=== PATIENT | female | born 1940 | race African-American/Black ===

== ENCOUNTER 2017-02-27 11:45 | Observation (INO) | payer MEDICARE ==
[2017-02-27] MEDS ORDERED: ACTIVATED CHARCOAL 25 GM BOTTLE PO ONE (12:07)
--- NOTE | 2017-02-27 12:08 | ER Document Report ---
ED Medical Screen (RME) - General Chief Complaint: Accidental Overdose Stated Complaint: OVERDOSE Time Seen by Provider: 02/27/17 12:05 Mode of Arrival: Ambulatory Information source: Patient Notes: 76 yr old female presents 1 hour after taking 8 amlodipine by accident. Poison control recommends charcoal. Pt admits ot feeling woozy I have greeted and performed a rapid initial assessment of this patient. A comprehensive ED assessment and evaluation of the patient, analysis of test results and completion of the medical decision making process will be conducted by additional ED providers. PHYSICAL EXAMINATION: GENERAL: Well-appearing, well-nourished and in no acute distress. HEAD: Atraumatic, normocephalic. EYES: Pupils equal round extraocular movements intact, conjunctiva are normal. ENT: Nares patent NECK: Normal range of motion LUNGS: No respiratory distress Musculoskeletal: Normal range of motion NEUROLOGICAL: Normal speech, normal gait. PSYCH: Normal mood, normal affect. SKIN: Warm, Dry, normal turgor, no rashes or lesions noted. TRAVEL OUTSIDE OF THE [place] IN LAST 30 DAYS: No - Related Data Allergies/Adverse Reactions: No Known Allergies Allergy (Unverified 02/27/17 12:03) Home Medications: Current Home Medications Amlodipine Besylate 02/27/17 [History] Atorvastatin Calcium 02/27/17 [History] Dexamethasone 02/27/17 [History] Omeprazole 02/27/17 [History] Potassium Chloride 02/27/17 [History] Past Medical History Renal/ Medical History: Denies: Hx Peritoneal Dialysis Physical Exam - Vital signs Vitals: Temp Pulse Resp BP Pulse Ox 98.8 F 108 H 16 173/66 H 98 02/27/17 11:53 02/27/17 11:53 02/27/17 11:53 02/27/17 11:53 02/27/17 11:53 Course - Vital Signs Vital signs: Temp Pulse Resp BP Pulse Ox 98.8 F 108 H 16 173/66 H 98 02/27/17 11:53 02/27/17 11:53 02/27/17 11:53 02/27/17 11:53 02/27/17 11:53
[2017-02-27] MEDS ORDERED: NORMAL SALINE 1000 ML 1,000 ML IV ONE (13:02)
[2017-02-27 13:05] LABS: ABSOLUTE EOSINOPHILS # (AUTO) 0.2 10^3/uL (0.0-0.6); ABSOLUTE LYMPHOCYTES (AUTO) 0.8 10^3/uL (0.5-4.7); ABSOLUTE MONOCYTES (AUTO) 0.5 10^3/uL (0.1-1.4); ABSOLUTE NEUT (AUTO) 2.2 10^3/uL (1.7-8.2); BASOPHILS % (AUTO) 0.4 % (0-2); HEMATOCRIT 34.3 % (36.0-47.0); HEMOGLOBIN 11.3 g/dL (12.0-15.5); HGB HCT DIFFERENCE -0.4; LYMPHOCYTES % (AUTO) 21.7 % (13-45); MEAN CORPUSCULAR HEMOGLOBIN 28.5 pg (27.0-33.4); MEAN CORPUSCULAR VOLUME 87 fl (80-97); RED BLOOD COUNT 3.96 10^6/uL (3.72-5.28); RED CELL DISTRIBUTION WIDTH 16.3 % (11.5-14.0); SEGMENTED NEUTROPHILS % (AUTO) 58.9 % (42-78); WHITE BLOOD COUNT 3.7 10^3/uL (4.0-10.5)
[2017-02-27 13:19] LABS: ALANINE AMINOTRANSFERASE 20 U/L (9-52); ALBUMIN 3.7 g/dL (3.5-5.0); ALKALINE PHOSPHATASE 62 U/L (38-126); ANION GAP 8 (5-19); ASPARTATE AMINO TRANSFERASE 14 U/L (14-36); BILIRUBIN,DIRECT 0.3 mg/dL (0.0-0.4); BILIRUBIN,TOTAL 0.7 mg/dL (0.2-1.3); BLOOD UREA NITROGEN 8 mg/dL (7-20); CALCIUM 9.2 mg/dL (8.4-10.2); CARBON DIOXIDE 29 mmol/L (22-30); CHLORIDE 103 mmol/L (98-107); CREATININE RESULT 0.56 mg/dL (0.52-1.25); GLUCOSE 81 mg/dL (75-110); MAGNESIUM 1.7 mg/dL (1.6-2.3); POTASSIUM 3.7 mmol/L (3.6-5.0); SODIUM 140.4 mmol/L (137-145); TOTAL PROTEIN 7.2 g/dL (6.3-8.2)
[2017-02-27] MEDS ORDERED: ONDANSETRON 4 MG TAB.RAPDIS PO ONE (13:28)
--- NOTE | 2017-02-27 13:49 | ER Document Report ---
ED General - General Chief Complaint: Accidental Overdose Stated Complaint: OVERDOSE Time Seen by Provider: 02/27/17 12:05 Mode of Arrival: Ambulatory TRAVEL OUTSIDE OF THE [place] IN LAST 30 DAYS: No - HPI Patient complains to provider of: Amlodipine overdose Notes: Patient has a history of multiple myeloma states that she is on chemotherapy was supposed to take 8 tablets a day had a tablet and swallowed in the look of the bile that she obtained a tablets from which was her amlodipine. Patient takes 2.5 mg tablets of amlodipine. Patient states she took these approximately 30 minutes prior to arrival here to the ER was immediately given charcoal is that she called poison control at home. Patient otherwise in triage states she felt little woozy upon my evaluation patient stating that she now feels fine. Denies any fevers chills nausea vomiting diarrhea. Denies any taking any extra medication of any of her other medications patient is unaware of the name of the chemotherapy that she was supposed to take for multiple myeloma - Related Data Allergies/Adverse Reactions: No Known Allergies Allergy (Unverified 02/27/17 12:03) Past Medical History - General Information source: Patient - Social History Smoking Status: Unknown if Ever Smoked Family History: Reviewed & Not Pertinent Patient has suicidal ideation: No Patient has homicidal ideation: No - Past Medical History Cardiac Medical History: Reports: Hx Hypertension Renal/ Medical History: Denies: Hx Peritoneal Dialysis Review of Systems - Review of Systems Constitutional: Other - Accidental overdose EENT: No symptoms reported Cardiovascular: No symptoms reported Respiratory: No symptoms reported Gastrointestinal: No symptoms reported Genitourinary: No symptoms reported Female Genitourinary: No symptoms reported Musculoskeletal: No symptoms reported Skin: No symptoms reported Hematologic/Lymphatic: No symptoms reported Neurological/Psychological: No symptoms reported Physical Exam - Vital signs Vitals: Temp Pulse Resp BP Pulse Ox 98.8 F 108 H 16 173/66 H 98 02/27/17 11:53 02/27/17 11:53 02/27/17 11:53 02/27/17 11:53 02/27/17 11:53 Interpretation: Normal - General General appearance: Appears well, Alert - HEENT Head: Normocephalic, Atraumatic Eyes: Normal Pupils: PERRL - Respiratory Respiratory status: No respiratory distress Chest status: Nontender Breath sounds: Normal Chest palpation: Normal - Cardiovascular Rhythm: Regular Heart sounds: Normal auscultation Murmur: No - Abdominal Inspection: Normal Distension: No distension Bowel sounds: Normal Tenderness: Nontender Organomegaly: No organomegaly - Back Back: Normal, Nontender - Extremities General upper extremity: Normal inspection, Nontender, Normal color, Normal ROM , Normal temperature General lower extremity: Normal inspection, Nontender, Normal color, Normal ROM , Normal temperature, Normal weight bearing. No: David's sign - Neurological Neuro grossly intact: Yes Cognition: Normal Orientation: AAOx4 Amira Coma Scale Eye Opening: Spontaneous Amira Coma Scale Verbal: Oriented Amira Coma Scale Motor: Obeys Commands Amira Coma Scale Total: 15 Speech: Normal Motor strength normal: LUE, RUE, LLE, RLE Sensory: Normal - Psychological Associated symptoms: Normal affect, Normal mood - Skin Skin Temperature: Warm Skin Moisture: Dry Skin Color: Normal Course - Re-evaluation Re-evalutation: 02/27/17 15:23 Patient's lab work does not reveal any significant pathology. Patient vital signs have been stable. EKG does not show any signs of AV block or QRS widening at this time. Patient will be monitored in the ER did discuss the patient's case with poison control recommended 24 hour observation. Discussed with the hospitalist staff will admit the patient to the telemetry area. IV fluids have been started at maintenance rate. Otherwise patient has no complaints stable for admission - Vital Signs Vital signs: Temp Pulse Resp BP Pulse Ox 98.8 F 108 H 15 146/64 H 100 02/27/17 11:53 02/27/17 11:53 02/27/17 14:01 02/27/17 14:00 02/27/17 14:01 - Laboratory Result Diagrams: 02/27/17 12:44 02/27/17 12:44 Laboratory results interpreted by me: 02/27/17 12:44 WBC 3.7 L Hgb 11.3 L Hct 34.3 L RDW 16.3 H Monocytes % 14.0 H Critical Care Note - Critical Care Note Total time excluding time spent on procedures (mins): 40 Comments: Multiple evaluations for calcium channel leadnra overdose Discharge - Discharge Clinical Impression: Accidental overdose of amlodipine Admitting Provider: Hospitalist - [facility] Admitted: Telemetry
[2017-02-27] MEDS ORDERED: NORMAL SALINE 1000 ML 1,000 ML IV PRN (14:06)
[2017-02-27] MEDS ORDERED: ACETAMINOPHEN 325 MG TABLET PO PRN (14:06)
[2017-02-27] MEDS ORDERED: MAGNESIUM HYDROXIDE SUSP 30 ML UDCUP PO PRN (14:06)
--- NOTE | 2017-02-27 14:21 | PDOC H&P ---
History of Present Illness Admission Date/PCP: 02/27/17 14:04 CAEDN LOCO MD Patient complains of: I TOOK THE WRONG MEDICINE History of Present Illness: CORONA TORRES is a 76 year old female presents from home where she resides with her after realizing she had taken the wrong pills thinking she was taking her 8 tabs of decadron she instead downed 8 norvasc of 2.5mg each (total 20mg). She's never done anything like this before and exclaims simply oversight on her part. Her PCP had taken her off the norvasc a month ago but she couldn't bring herself to throw them away, instead storing in the cabinet right next to the dexamethasone she takes for multiple myeloma. she denies chest pain, palpitations, suicide ideations, depression, lethargy, dizziness, numbness or tingling. She has remained hemodynamically stable in the ED, poison control recommended a dose of activated charcoal which she continues to consume, and overnight monitoring for adverse effects. she has the wisdom not to take her usual toprol afterwards. Past Medical History Cardiac Medical History: Reports: Hypertension Pulmonary Medical History: Reports: None Endocrine Medical History: Reports: None Malignancy Medical History: Reports: Other - multiple myeloma GI Medical History: Reports: None Social History Information Source: Patient Smoking Status: Never Smoker Frequency of Alcohol Use: None Hx Recreational Drug Use: No Hx Prescription Drug Abuse: No - Advance Directive Resuscitation Status: Full Code Family History Family History: Reviewed & Not Pertinent, Hypertension Parental Family History Reviewed: Yes Children Family History Reviewed: Yes Sibling(s) Family History Reviewed.: Yes Medication/Allergy Home Medications: Amlodipine Besylate 02/27/17 Atorvastatin Calcium 02/27/17 Dexamethasone 02/27/17 Omeprazole 02/27/17 Potassium Chloride 02/27/17 Allergies/Adverse Reactions: No Known Allergies Allergy (Unverified 02/27/17 12:03) Review of Systems All systems: reviewed and no additional remarkable complaints except as stated - all systems reviewed, see HPI, remaining systems negative. Physical Exam Vital Signs: Temp Pulse Resp BP Pulse Ox 98.8 F 108 H 21 H 142/61 H 99 02/27/17 11:53 02/27/17 11:53 02/27/17 13:44 02/27/17 13:44 02/27/17 13:44 General appearance: PRESENT: no acute distress, well-developed, well-nourished Head exam: PRESENT: atraumatic, normocephalic Eye exam: PRESENT: EOMI. ABSENT: conjunctival injection, scleral icterus Mouth exam: PRESENT: moist, neck supple Neck exam: PRESENT: full ROM. ABSENT: carotid bruit Respiratory exam: PRESENT: clear to auscultation abdelrahman. ABSENT: accessory muscle use Cardiovascular exam: PRESENT: RRR. ABSENT: systolic murmur Pulses: PRESENT: normal radial pulses, normal dorsalis pedis pul Vascular exam: PRESENT: normal capillary refill GI/Abdominal exam: PRESENT: normal bowel sounds, soft. ABSENT: tenderness Extremities exam: ABSENT: calf tenderness, clubbing, pedal edema Musculoskeletal exam: PRESENT: ambulatory, full ROM Neurological exam: PRESENT: alert, awake, oriented to person, oriented to place , oriented to time, oriented to situation Psychiatric exam: PRESENT: appropriate affect, normal mood Skin exam: PRESENT: dry. ABSENT: warm Assessment & Plan - Diagnosis (1) Accidental drug ingestion Qualifiers: Encounter type: initial encounter Qualified Code(s): T50.901A - Poisoning by unspecified drugs, medicaments and biological substances, accidental (unintentional), initial encounter Is this a current diagnosis for this admission?: YesPlan: admit to telemetry for overnight monitoring of hemodynamics; continue IVFs and bolus as needed to overcome any hypotension that may result (2) HTN (hypertension) Qualifiers: Hypertension type: essential hypertension Qualified Code(s): I10 - Essential (primary) hypertension Is this a current diagnosis for this admission?: YesPlan: stable; hold home regimen due to risk for hypotension (3) Multiple myeloma Qualifiers: Multiple myeloma remission status: not in remission Qualified Code(s ): C90.00 - Multiple myeloma not having achieved remission Is this a current diagnosis for this admission?: YesPlan: stable; currently undergoing treatment in [place] by her oncologist. - Time Time Spent: 50 to 70 Minutes Medications reviewed and adjusted accordingly: Yes Anticipated discharge: Home Within: within 24 hours
--- NOTE | 2017-02-27 17:53 | EKG REPORT ---
SEVERITY:- ABNORMAL ECG - SINUS RHYTHM PROBABLE LEFT ATRIAL ABNORMALITY LEFT VENTRICULAR HYPERTROPHY : Confirmed by: Nneka Ye 27-Feb-2017 17:52:53
[2017-02-28 07:53] VITALS: BP 131/53
--- NOTE | 2017-02-28 11:02 | PDOC DISCHARGE SUMMARY ---
General - Admit/Disc Date/PCP Admission Date/Primary Care Provider: 02/27/17 14:06 CADEN LOCO MD Discharge Date: 02/28/17 - Discharge Diagnosis (1) Accidental drug ingestion Is this a current diagnosis for this admission?: Yes (2) HTN (hypertension) Is this a current diagnosis for this admission?: Yes (3) Multiple myeloma Is this a current diagnosis for this admission?: Yes - Additional Information Resuscitation Status: Full Code Discharge Diet: Cardiac Discharge Activity: Activity As Tolerated Home Medications: Aspirin [Ecotrin 81 mg EC Tablet] 162 mg PO DAILY 02/27/17 Atorvastatin Calcium [Lipitor 10 mg Tablet] 10 mg PO QHS 02/27/17 Dexamethasone 32 mg PO MO@1000 02/27/17 Lenalidomide [Revlimid] 15 mg PO DAILY 02/27/17 Metoprolol Succinate [Toprol XL 100 mg Tablet] 50 mg PO DAILY 02/27/17 Potassium Chloride [Klor-Con 10] 10 meq PO Q12 02/27/17 Sennosides [Senna] 8.6 mg PO DAILY 02/27/17 History of Present Illness Patient complains of: i took the wrong medicine History of Present Illness: CORONA TORRES is a 76 year old female presents from home where she resides with her after realizing she had taken the wrong pills thinking she was taking her 8 tabs of decadron she instead downed 8 norvasc of 2.5mg each (total 20mg). She's never done anything like this before and exclaims simply oversight on her part. Her PCP had taken her off the norvasc a month ago but she couldn't bring herself to throw them away, instead storing in the cabinet right next to the dexamethasone she takes for multiple myeloma. she denies chest pain, palpitations, suicide ideations, depression, lethargy, dizziness, numbness or tingling. She has remained hemodynamically stable in the ED, poison control recommended a dose of activated charcoal which she continues to consume, and overnight monitoring for adverse effects. she has the wisdom not to take her usual toprol afterwards. Hospital Course Hospital Course: she was admitted and monitored overnight without evidence for hypotension or other adverse effects of the medication. she is ready and stable for d/c home at this time. she was instructed to resume her toprol upon arrival home but discard the amlodipine at local pharmacy. she expresses no concerns to me about going home at this time. Physical Exam Vital Signs: Temp Pulse Resp BP Pulse Ox 98.6 F 83 17 131/53 H 100 02/28/17 07:50 02/28/17 07:50 02/28/17 07:50 02/28/17 07:50 02/28/17 07:50 Intake & Output 02/27/17 02/28/17 03/01/17 06:59 06:59 06:59 Intake Total 835 Balance 835 Weight 46.2 kg General appearance: PRESENT: no acute distress, well-developed, well-nourished Head exam: PRESENT: atraumatic, normocephalic Eye exam: PRESENT: EOMI. ABSENT: scleral icterus Respiratory exam: PRESENT: clear to auscultation abdelrahman. ABSENT: accessory muscle use Cardiovascular exam: PRESENT: RRR. ABSENT: systolic murmur GI/Abdominal exam: PRESENT: normal bowel sounds, soft. ABSENT: tenderness Musculoskeletal exam: PRESENT: ambulatory, full ROM Qualifiers PATEINT BEING DISCHARGED WITH ANY OF THE FOLLOWING DIAGNOSIS?: No VTE patient discharged on overlapping Therapy?: No Reason(s) for not prescribing Overlap Therapy:: Not indicated Plan Discharge Plan: home with f/u prn with PCP Time Spent: Less than 30 Minutes
== END 2017-02-28 08:33 | disposition home or self-care (01) ==
LOC: ER 11:45 → UNDOADMIN 14:04 → EH 14:04 → 5 14:06 → INTOOBSV 14:06 → EH 15:03 → 5 15:03
PROVIDERS: ADMIT Internal Medicine; ATTEND Internal Medicine
DX: I10 Essential (primary) hypertension (principal); C90.00 Multiple myeloma not having achieved remission; Z79.899 Other long term (current) drug therapy; Z79.82 Long term (current) use of aspirin; Z79.52 Long term (current) use of systemic steroids; Z82.49 Family history of ischemic heart disease and other diseases of the circulatory system
CPT/HCPCS: 93005; 99291; 96360; 36415; 83735; 85025; 80053; 93010; G0378 ×3; J7030; J3490

== ENCOUNTER 2017-09-14 15:58 | Inpatient (IN) | payer MEDICARE ==
--- NOTE | 2017-09-14 16:18 | ER Document Report ---
ED Medical Screen (RME) - General Chief Complaint: Abdominal Pain Stated Complaint: STOMACH PAIN Time Seen by Provider: 09/14/17 16:13 Mode of Arrival: Wheelchair Information source: Patient Notes: 77-year-old female presents with complaints of left lower quadrant abdominal pain a few day duration. Patient notes she has had decreased appetite. Family denies any history of diverticulosis or colitis, pt still has appendix and gallbladder I have greeted and performed a rapid initial assessment of this patient. A comprehensive ED assessment and evaluation of the patient, analysis of test results and completion of the medical decision making process will be conducted by additional ED providers. PHYSICAL EXAMINATION: GENERAL: febrile but Well-appearing, well-nourished and in no acute distress. HEAD: Atraumatic, normocephalic. EYES: Pupils equal round extraocular movements intact, conjunctiva are normal. ENT: Nares patent NECK: Normal range of motion LUNGS: No respiratory distress Abdomen: Tender left lower quadrant Musculoskeletal: Normal range of motion NEUROLOGICAL: Normal speech, normal gait. PSYCH: Normal mood, normal affect. SKIN: Warm, Dry, normal turgor, no rashes or lesions noted. TRAVEL OUTSIDE OF THE [place] IN LAST 30 DAYS: No - Related Data Allergies/Adverse Reactions: No Known Allergies Allergy (Verified 09/14/17 16:01) Past Medical History - Past Medical History Cardiac Medical History: Reports: Hx Hypertension Renal/ Medical History: Denies: Hx Peritoneal Dialysis Physical Exam - Vital signs Vitals: Temp Pulse Resp BP Pulse Ox 101.1 F H 122 H 20 135/57 H 97 09/14/17 16:05 09/14/17 16:05 09/14/17 16:05 09/14/17 16:05 09/14/17 16:05 Course - Vital Signs Vital signs: Temp Pulse Resp BP Pulse Ox 101.1 F H 122 H 20 135/57 H 97 09/14/17 16:05 09/14/17 16:05 09/14/17 16:05 09/14/17 16:05 09/14/17 16:05
[2017-09-14] MEDS ORDERED: ACETAMINOPHEN 325 MG TABLET PO ONE (16:19)
[2017-09-14] MEDS ORDERED: NORMAL SALINE 1000 ML 1,000 ML IV ONE (16:19)
--- NOTE | 2017-09-14 16:55 | RADIOLOGY REPORT (SQ) ---
EXAM DESCRIPTION: CHEST PA/LAT COMPLETED DATE/TIME: 09/14/2017 4:43 pm REASON FOR STUDY: fever COMPARISON: None. EXAM PARAMETERS: NUMBER OF VIEWS: two views TECHNIQUE: Digital Frontal and Lateral radiographic views of the chest acquired. RADIATION DOSE: NA LIMITATIONS: none FINDINGS: LUNGS AND PLEURA: COPD. Minimal left basilar atelectasis or scarring. No other opacities , masses or pneumothorax. No pleural effusion. MEDIASTINUM AND HILAR STRUCTURES: No masses or contour abnormalities. HEART AND VASCULAR STRUCTURES: Heart normal size. No evidence for failure. BONES: No acute findings. Old healed fracture of the proximal right humerus. HARDWARE: Multiple surgical clips along the right chest wall. OTHER: Partial eventration of the right hemidiaphragm. IMPRESSION: COPD with minimal left basilar atelectasis or scarring. TECHNICAL DOCUMENTATION: JOB ID: [id number] [employer]- All Rights Reserved
[2017-09-14 17:39] LABS: ABSOLUTE LYMPHOCYTES (AUTO) 0.6 10^3/uL (0.5-4.7); ABSOLUTE MONOCYTES (AUTO) 1.1 10^3/uL (0.1-1.4); ABSOLUTE NEUT (AUTO) 5.8 10^3/uL (1.7-8.2); BASOPHILS % (AUTO) 0.2 % (0-2); EOSINOPHILS % (AUTO) 0.1 % (0-6); HEMATOCRIT 36.4 % (36.0-47.0); HEMOGLOBIN 12.2 g/dL (12.0-15.5); LYMPHOCYTES % (AUTO) 8.6 % (13-45); MEAN CORPUSCULAR HEMOGLOBIN 28.3 pg (27.0-33.4); MEAN CORPUSCULAR HGB CONC 33.6 g/dL (32.0-36.0); MEAN CORPUSCULAR VOLUME 84 fl (80-97); MONOCYTES % (AUTO) 14.4 % (3-13); PLATELET COUNT 345 10^3/uL (150-450); RED BLOOD COUNT 4.33 10^6/uL (3.72-5.28); RED CELL DISTRIBUTION WIDTH 16.1 % (11.5-14.0); SEGMENTED NEUTROPHILS % (AUTO) 76.7 % (42-78); TOTAL CELLS COUNTED % (AUTO) 100 %; WHITE BLOOD COUNT 7.5 10^3/uL (4.0-10.5)
[2017-09-14 17:43] LABS: VENOUS BLOOD HCO3 26.8 mmol/L (20-32); VENOUS BLOOD PCO2 38.1 mmHg (35-63); VENOUS BLOOD PH 7.47 (7.30-7.42)
[2017-09-14 17:52] LABS: INTERNATIONAL RATION (INR) 0.97; PROTHROMBIN TIME 13.6 SEC (11.4-15.4)
[2017-09-14 17:56] LABS: ALANINE AMINOTRANSFERASE 20 U/L (9-52); ALBUMIN 3.8 g/dL (3.5-5.0); ALKALINE PHOSPHATASE 52 U/L (38-126); ANION GAP 11 (5-19); ASPARTATE AMINO TRANSFERASE 11 U/L (14-36); BILIRUBIN,DIRECT 0.4 mg/dL (0.0-0.4); BILIRUBIN,TOTAL 1.1 mg/dL (0.2-1.3); BLOOD UREA NITROGEN 8 mg/dL (7-20); CALCIUM 9.6 mg/dL (8.4-10.2); CARBON DIOXIDE 27 mmol/L (22-30); CHLORIDE 97 mmol/L (98-107); GLUCOSE 135 mg/dL (75-110); POTASSIUM 3.1 mmol/L (3.6-5.0); SODIUM 134.8 mmol/L (137-145); TOTAL PROTEIN 6.8 g/dL (6.3-8.2)
--- NOTE | 2017-09-14 18:44 | ER Document Report ---
ED GI/ - General Chief Complaint: Abdominal Pain Stated Complaint: STOMACH PAIN Time Seen by Provider: 09/14/17 16:13 Mode of Arrival: Wheelchair Notes: The patient is a 77-year-old female, PMHx multiple myeloma receiving monthly oral chemo, HTN, COPD, no prior abdominal surgeries, presents with 1 day of left lower abdominal pain and fevers. She was having watery diarrhea yesterday. She denies nausea, vomiting, urinary symptoms, blood in stool, rash , chest pain or shortness of breath. TRAVEL OUTSIDE OF THE [place] IN LAST 30 DAYS: No - Related Data Allergies/Adverse Reactions: No Known Allergies Allergy (Verified 09/14/17 16:01) Past Medical History - General Information source: Patient - Social History Smoking Status: Never Smoker Family History: Reviewed & Not Pertinent Patient has suicidal ideation: No Patient has homicidal ideation: No - Past Medical History Cardiac Medical History: Reports: Hx Hypercholesterolemia, Hx Hypertension Renal/ Medical History: Denies: Hx Peritoneal Dialysis Past Surgical History: Reports: Hx Breast Surgery - R lumpectomy, Hx Orthopedic Surgery - pin in L leg Review of Systems - Review of Systems Notes: REVIEW OF SYSTEMS: CONSTITUTIONAL: +fevers, -chills EENT: -eye pain, -difficulty swallowing, -nasal congestion CARDIOVASCULAR: -chest pain, -syncope. RESPIRATORY: -cough, -SOB GASTROINTESTINAL: +LLQ abdominal pain, -nausea, -vomiting, -diarrhea GENITOURINARY: -dysuria, -hematuria MUSCULOSKELETAL: -back pain, -neck pain SKIN: -rash or skin lesions. HEMATOLOGIC: -easy bruising or bleeding. LYMPHATIC: -swollen, enlarged glands. NEUROLOGICAL: -altered mental status or loss of consciousness, -headache, - neurologic symptoms PSYCHIATRIC: -anxiety, -depression. ALL OTHER SYSTEMS REVIEWED AND NEGATIVE. Physical Exam - Vital signs Vitals: Temp Pulse Resp BP Pulse Ox 101.1 F H 122 H 20 135/57 H 97 09/14/17 16:05 09/14/17 16:05 09/14/17 16:05 09/14/17 16:05 09/14/17 16:05 - Notes Notes: PHYSICAL EXAMINATION: GENERAL: Well-appearing, well-nourished and in no acute distress. HEAD: Atraumatic, normocephalic. EYES: Pupils equal round and reactive to light, extraocular movements intact, sclera anicteric, conjunctiva are normal. ENT: nares patent, oropharynx clear without exudates. Moist mucous membranes. NECK: Normal range of motion, supple without lymphadenopathy LUNGS: Breath sounds clear to auscultation bilaterally and equal. No wheezes rales or rhonchi. HEART: Tachycardia, regular rhythm. ABDOMEN: Soft, mild LLQ tenderness, normoactive bowel sounds. No guarding, no rebound. No masses appreciated. EXTREMITIES: Normal range of motion, no pitting or edema. No cyanosis. NEUROLOGICAL: Cranial nerves grossly intact. Normal speech, normal gait. Normal sensory and motor exams. PSYCH: Normal mood, normal affect. SKIN: Warm, Dry, normal turgor, no rashes or lesions noted. Course - Re-evaluation Re-evalutation: Concern for diverticulitis and possible perforation with LLQ tenderness, tachycardia and fever. CT scan ordered. Pt refused pain medications at this time. 09/14/17 21:40 CT scan showed 4.2 cm contained perforated presumed diverticulitis at the sigmoid -descending colonic junction inflammatory changes. Spoke to Dr. Boucher (Surgicalist) and he will consult on the patient. Will begin Zosyn and IVF. Potassium also 3.1, so will replete through IV. Pt once again defers pain medicine. Her BP is remaining in 140's-150's/80's. Due to her other comorbidities, he recommends admission to hospitalist. 09/14/17 21:[address] Beltran and she will admit patient as Inpatient to telemetry. - Vital Signs Vital signs: Temp Pulse Resp BP Pulse Ox 101.1 F H 122 H 19 150/62 H 97 09/14/17 16:05 09/14/17 16:05 09/14/17 20:01 09/14/17 20:01 09/14/17 20:01 - Laboratory Result Diagrams: 09/14/17 17:24 09/14/17 17:24 Laboratory results interpreted by me: 09/14/17 09/14/17 09/14/17 17:24 17:24 17:24 RDW 16.1 H Lymphocytes % 8.6 L Monocytes % 14.4 H VBG pH 7.47 H Sodium 134.8 L Potassium 3.1 L Chloride 97 L Glucose 135 H POC Glucose AST 11 L Urine Blood 09/14/17 09/14/17 18:23 18:26 RDW Lymphocytes % Monocytes % VBG pH Sodium Potassium Chloride Glucose POC Glucose 135 H AST Urine Blood SMALL H - Diagnostic Test Radiology reviewed: Image reviewed, Reports reviewed Radiology results interpreted by me: CT A/P: 4.2 cm contained perforated presumed diverticulitis at the sigmoid - descending colonic junction inflammatory changes, there is diffuse wall thickening through this region measuring up to 1.4 cm, underlying lesion is not excluded. Surgical consultation is recommended. Discharge - Discharge Clinical Impression: Perforated diverticulum of large intestine, Hypokalemia Sepsis Qualifiers: Sepsis type: sepsis due to unspecified organism Qualified Code(s): A41.9 - Sepsis, unspecified organism Condition: Stable Disposition: ADMITTED INPATIENT Admitting Provider: Hospitalist - [facility] Admitted: Telemetry Referrals: CADEN LOCO MD [Primary Care Provider] - Follow up as needed
[2017-09-14 18:49] LABS: APPEARANCE,URINE CLEAR; BILIRUBIN,URINE NEGATIVE (NEGATIVE); COLOR,URINE YELLOW; GLUCOSE, URINE NEGATIVE (NEGATIVE); KETONES,URINE NEGATIVE (NEGATIVE); LEUKOCYTE ESTERASE,URINE NEGATIVE (NEGATIVE); NITRITE,URINE NEGATIVE (NEGATIVE); PROTEIN,URINE NEGATIVE (NEGATIVE); URINE SPECIFIC GRAVITY 1.009; UROBILINOGEN,URINE NEGATIVE mg/dL (<2.0)
--- NOTE | 2017-09-14 19:56 | EKG REPORT ---
SEVERITY:- ABNORMAL ECG - SINUS TACHYCARDIA PROBABLE LEFT ATRIAL ABNORMALITY BORDERLINE LEFT AXIS DEVIATION NONSPECIFIC T ABNORMALITIES, ANT-LAT LEADS : Confirmed by: Anderson Steinberg MD 14-Sep-2017 19:54:38
--- NOTE | 2017-09-14 21:11 | RADIOLOGY REPORT (SQ) ---
EXAM DESCRIPTION: CT ABD/PELVIS WITH IV ORAL COMPLETED DATE/TIME: 09/14/2017 8:51 pm REASON FOR STUDY: LLQ pain, fever COMPARISON: None. TECHNIQUE: CT scan of the abdomen and pelvis performed using helical scanning technique with dynamic intravenous contrast injection. No oral contrast. Images reviewed with lung, soft tissue, and bone windows. Reconstructed coronal and sagittal MPR images reviewed. Delayed images for evaluation of the urinary system also acquired. All images stored on PACS. All CT scanners at this facility use dose modulation, iterative reconstruction, and/or weight based d osing when appropriate to reduce radiation dose to as low as reasonably achievable (ALARA). [facility]: Dose Right [facility]: CareDose [facility]: Dose Right [facility]: Teradose 4D [facility]: drop.io CONTRAST TYPE AND DOSE: contrast/concentration: Isovue 370.00 mg/ml; Total Contrast Delivered: 64.0 ml; Total Saline Delivered: 65.1 ml RENAL FUNCTION: GFR > 60. RADIATION DOSE: CT Rad equipment meets quality standard of care and radiation dose reduction techniq ues were employed. CTDIvol: 6.8 - 9.7 mGy. DLP: 800 mGy-cm.. LIMITATIONS: None. FINDINGS: LOWER CHEST: No significant findings. No nodules or infiltrates. LIVER: Normal size. No masses. No dilated ducts. SPLEEN: Normal size. No focal lesions. PANCREAS: No masses. No significant calcifications. No adjacent inflammation or peripancreatic fluid collections. Pancreatic duct not dilated. GALLBLADDER: No identified stones by CT criteria. No inflammatory changes to suggest cholecystitis. ADRENAL GLANDS: No significant masses or asymmetry. RIGHT KIDNEY AND URETER: No solid masses. Parapelvic cysts. No significant calcifications. No hyd ronephrosis or hydroureter. LEFT KIDNEY AND URETER: No solid masses. Parapelvic cysts. No significant calcifications. No hydr onephrosis or hydroureter. AORTA AND VESSELS: No aneurysm. No dissection. Renal arteries, SMA, celiac without stenosis. RETROPERITONEUM: No retroperitoneal adenopathy, hemorrhage or masses. BOWEL AND PERITONEAL CAVITY: 4.2 cm contained perforated presumed diverticulitis at the sigmoid -desc ending colonic junction inflammatory changes, there is diffuse wall thickening through this region me asuring up to 1.4 cm, underlying lesion is not excluded. Moderate mesenteric free fluid and inflamma tory changes are present extending into the left upper retroperitoneum. APPENDIX: Normal. PELVIS: Small amount of free fluid. Normal bladder. ABDOMINAL WALL: No masses. No hernias. BONES: No significant or acute findings. OTHER: No other significant finding. IMPRESSION: 4.2 cm contained perforated presumed diverticulitis at the sigmoid -descending colonic j unction inflammatory changes, there is diffuse wall thickening through this region measuring up to 1. 4 cm, underlying lesion is not excluded. Surgical consultation is recommended. TECHNICAL DOCUMENTATION: JOB ID: [id number] Quality ID # [id number]: Final reports with documentation of one or more dose reduction techniques (e.g., Au tomated exposure control, adjustment of the mA and/or kV according to patient size, use of iterative reconstruction technique) 2010 [employer]- All Rights Reserved
[2017-09-14] MEDS ORDERED: PIPERACILLIN/TAZOBACTAM 3.375 GM VIAL IV ONE (21:37)
[2017-09-14] MEDS: POTASSI CL 20 MEQ/50 ML RIDER 20 MEQ/50 ML RTUPB IV SCH ×2 (22:15→23:38)
[2017-09-14] MEDS ORDERED: PROMETHAZINE HCL INJ 25 MG/1 ML VIAL IV PRN (22:17)
[2017-09-14] MEDS ORDERED: ACETAMINOPHEN 650 MG SUPP.RECT PR PRN (22:17)
[2017-09-14] MEDS ORDERED: NORMAL SALINE 1000 ML 1,000 ML IV SCH (22:30)
--- NOTE | 2017-09-14 23:16 | PDOC CONSULTATION ---
Consultation Consult Date: 09/14/17 Consult reason:: left side abdominal pain History of Present Illness Admission Date/PCP: 09/14/17 22:12 CADEN LOCO MD History of Present Illness: This is a 77 y/o female with a 2 day hx of left sided abdominal pain, last bowel movement 2 days ago and reports passing flatus today. She denies hematochetia, vomiting, nausea; her most recent colonoscopy was several years ago and it was negative. A CT scab of the A/P was done today and a localized perforated diverticulitis has been diagnosed. Past Medical History Cardiac Medical History: Reports: Hyperlipidema, Hypertension Hematology: Reports: Anemia Past Surgical History Past Surgical History: Reports: Orthopedic Surgery - pin in L leg Social History Smoking Status: Never Smoker Frequency of Alcohol Use: None Hx Recreational Drug Use: No Drugs: None Hx Prescription Drug Abuse: No Family History Family History: Reviewed & Not Pertinent Parental Family History Reviewed: Yes Children Family History Reviewed: Yes Sibling(s) Family History Reviewed.: Yes Medication/Allergy Home Medications: Aspirin [Ecotrin 81 mg EC Tablet] 162 mg PO DAILY 02/27/17 Atorvastatin Calcium [Lipitor 10 mg Tablet] 10 mg PO QHS 02/27/17 Dexamethasone 32 mg PO MO@1000 02/27/17 Lenalidomide [Revlimid] 15 mg PO DAILY 02/27/17 Metoprolol Succinate [Toprol XL 100 mg Tablet] 50 mg PO DAILY 02/27/17 Potassium Chloride [Klor-Con 10] 10 meq PO Q12 02/27/17 Sennosides [Senna] 8.6 mg PO DAILY 02/27/17 Allergies/Adverse Reactions: No Known Allergies Allergy (Verified 09/14/17 16:01) Physical Exam Vital Signs: Temp Pulse Resp BP Pulse Ox 101.1 F H 122 H 19 150/62 H 97 09/14/17 16:05 09/14/17 16:05 09/14/17 20:01 09/14/17 20:01 09/14/17 20:01 General appearance: PRESENT: no acute distress Head exam: PRESENT: atraumatic Neck exam: PRESENT: full ROM Respiratory exam: PRESENT: clear to auscultation abdelrahman Cardiovascular exam: PRESENT: RRR GI/Abdominal exam: PRESENT: distended, soft, tenderness - left lateral quadrant Neurological exam: PRESENT: alert, awake, oriented to person, oriented to place , oriented to time, oriented to situation, CN II-XII grossly intact. ABSENT: motor sensory deficit Results Impressions: Abdomen/Pelvis CT 09/14/17 00:00 IMPRESSION: 4.2 cm contained perforated presumed diverticulitis at the sigmoid -descending colonic junction inflammatory changes, there is diffuse wall thickening through this region measuring up to 1.4 cm, underlying lesion is not excluded. Surgical consultation is recommended. Chest X-Ray 09/14/17 16:19 IMPRESSION: COPD with minimal left basilar atelectasis or scarring. Assessment & Plan - Diagnosis (2) Perforated diverticulum of large intestine Is this a current diagnosis for this admission?: Yes - Plan Summary Plan Summary: A/ Acute, localized perforated sigmoid diverticulitis WBC normal Physical Exam shows mild pain on the left lateral quadrant Multiple myeloma P/ Agree with admission IV Hydration IV Abx (Zosyn) Strict NPO Diet can be advanced as the patient symptoms ans physical exam improve
[2017-09-15] MEDS ORDERED: PIPERACILLIN/TAZOBACTAM 3.375 GM VIAL IV SCH (00:45)
[2017-09-15] MEDS ORDERED: HYDRALAZINE HCL INJ/PF 20 MG/1 ML SDV IV PRN (00:49)
--- NOTE | 2017-09-15 00:50 | PDOC H&P ---
History of Present Illness Admission Date/PCP: 09/14/17 22:12 CADEN LOCO MD Patient complains of: Left-sided abdominal pain for the last couple of days. History of Present Illness: CORONA TORRES is a 77 year old female with history of recurrent multiple myeloma (started on chemotherapy on 09/11/2017), breast cancer (post right lumpectomy, chemoradiation) was admitted with above-mentioned complaints. It was very difficult to get an accurate history from the patient so most of the information was obtained from her at bedside. According to the patient, she started having left-sided abdominal pain 2 days ago. The pain was intermittent and severe. She felt nauseous around 1 AM yesterday and vomited once. The vomitus was of food consistency, nonbloody. She denied any fever or chills or any diarrhea. She has chronic constipation intermittently. She also denied any urinary symptoms. In the ED, her temperature was 101.1, heart rate 122, respiratory rate 20, blood pressure 135/57 with oxygen saturation of 97% on room air. Her WBC was 10.5 and her hemoglobin was 12.2. Lactic acid was 1.4. UA and CXR were both negative. An abdominal CAT scan was done which showed 4.2 cm contained perforated diverticulitis at the sigmoid/descending colon junction with diffuse wall thickening in the region. She received 3.375 mg IV Zosyn 1. Past Medical History Cardiac Medical History: Reports: Hyperlipidema, Hypertension Malignancy Medical History: Reports: Breast Cancer - Post right lumpectomy with a chemoradiation., Other - Myeloma, recurrent. She was restarted on chemo on . Hematology: Reports: Anemia Past Surgical History Past Surgical History: Reports: Hysterectomy, Orthopedic Surgery - pin in L leg , Other - Right lumpectomy. Social History Smoking Status: Never Smoker Cigarettes Packs Per Day: 0 - She used to smoke less than a pack a day for about 10 years. She quit the more than 30 years ago. Frequency of Alcohol Use: None Hx Recreational Drug Use: No Drugs: None Hx Prescription Drug Abuse: No Family History Parental Family History Reviewed: Yes - No history of heart disease or diabetes. Children Family History Reviewed: No Sibling(s) Family History Reviewed.: Yes Medication/Allergy Home Medications: Aspirin [Ecotrin 81 mg EC Tablet] 162 mg PO DAILY 02/27/17 Atorvastatin Calcium [Lipitor 10 mg Tablet] 10 mg PO QHS 02/27/17 Dexamethasone 32 mg PO MO@1000 02/27/17 Lenalidomide [Revlimid] 15 mg PO DAILY 02/27/17 Metoprolol Succinate [Toprol XL 100 mg Tablet] 50 mg PO DAILY 02/27/17 Potassium Chloride [Klor-Con 10] 10 meq PO Q12 02/27/17 Sennosides [Senna] 8.6 mg PO DAILY 02/27/17 Allergies/Adverse Reactions: No Known Allergies Allergy (Verified 09/14/17 16:01) Review of Systems Constitutional: ABSENT: chills, fever(s), night sweats Eyes: ABSENT: visual disturbances Ears: ABSENT: hearing changes Nose, Mouth, and Throat: ABSENT: headache(s), sore throat Cardiovascular: PRESENT: as per HPI. ABSENT: chest pain, edema, palpitations Respiratory: ABSENT: cough, dyspnea Gastrointestinal: PRESENT: as per HPI Genitourinary: PRESENT: as per HPI Musculoskeletal: ABSENT: back pain, muscle weakness Integumentary: ABSENT: diaphoresis, erythema, rash Neurological: ABSENT: abnormal movements, abnormal speech Physical Exam Vital Signs: Temp Pulse Resp BP Pulse Ox 101.1 F H 122 H 19 150/62 H 97 09/14/17 16:05 09/14/17 16:05 09/14/17 20:01 09/14/17 20:01 09/14/17 20:01 General appearance: PRESENT: no acute distress Head exam: PRESENT: atraumatic, normocephalic Eye exam: PRESENT: conjunctiva pink, PERRLA. ABSENT: scleral icterus Mouth exam: PRESENT: moist, tongue midline Neck exam: ABSENT: JVD Respiratory exam: PRESENT: clear to auscultation abdelrahman. ABSENT: rales, rhonchi, wheezes Cardiovascular exam: PRESENT: RRR - S1 S2 normal. ABSENT: rubs Pulses: PRESENT: normal dorsalis pedis pul GI/Abdominal exam: PRESENT: normal bowel sounds, soft, tenderness - LLQ. ABSENT : distended, rebound Rectal exam: PRESENT: deferred Extremities exam: PRESENT: full ROM. ABSENT: pedal edema Neurological exam: PRESENT: alert, awake, oriented to situation Psychiatric exam: PRESENT: appropriate affect, normal mood Skin exam: PRESENT: dry, intact, warm. ABSENT: rash Results Laboratory Results: CBC: WBC 7.5, hemoglobin 12.2, hematocrit 36.4, MCV 84, RDW 16.1, platelets 345. PT/INR: 30.6/0.97. VB.47/38.1/26.8 (bicarb). CMP: Sodium 134.8, potassium 3.1, chloride 97, bicarb 27, anion gap 11, BUN 8, creatinine 0.55, glucose 135, lactic acid 1.4, calcium 9.6, AST/ALT 11/20. UA: Negative. EKG Comments: 12 lead EKG: Sinus rhythm, ventricular rate 100, [place] 0, poor R-wave progression , no acute changes. Compared to previous 12-lead EKG done on 02/27/2017, sinus rhythm, ventricular rate 85, [place] 0, no acute changes. Impressions: Abdomen/Pelvis CT 09/14/17 00:00 IMPRESSION: 4.2 cm contained perforated presumed diverticulitis at the sigmoid -descending colonic junction inflammatory changes, there is diffuse wall thickening through this region measuring up to 1.4 cm, underlying lesion is not excluded. Surgical consultation is recommended. Chest X-Ray 09/14/17 16:19 IMPRESSION: COPD with minimal left basilar atelectasis or scarring. Assessment & Plan - Diagnosis (1) Perforated diverticulum of large intestine Is this a current diagnosis for this admission?: Yes Plan: (contained). Abdominal CAT scan reviewed. We will continue conservative management with IV fluids and pain medications as needed and monitor. Surgical consultation is appreciated. (2) Sepsis Qualifiers: Sepsis type: sepsis due to unspecified organism Qualified Code(s): A41.9 - Sepsis, unspecified organism Is this a current diagnosis for this admission?: Yes Plan: Given fever and tachycardia in the setting of diverticulitis. CXR and abdominal CAT scan were reviewed. Her UA was negative. We will continue Zosyn and follow-up blood cultures. (3) Acute diverticulitis of intestine Is this a current diagnosis for this admission?: Yes Plan: Left lower quadrant, management as per #2 (4) Essential hypertension Is this a current diagnosis for this admission?: Yes Plan: IV hydralazine as needed. (5) Multiple myeloma Qualifiers: Multiple myeloma remission status: not in remission Qualified Code(s): C90.00 - Multiple myeloma not having achieved remission Is this a current diagnosis for this admission?: No Plan: The patient is currently receiving chemotherapy. - Time Time Spent: Greater than 70 Minutes Anticipated discharge: Home - Inpatient Certification Based on my medical assessment, after consideration of the patient's comorbidities, presenting symptoms, or acuity I expect that the services needed warrant INPATIENT care.: Yes I certify that my determination is in accordance with my understanding of Medicare's requirements for reasonable and necessary INPATIENT services [42 CFR 412.3e].: Yes
[2017-09-15] MEDS: POTASSI CL 20 MEQ/50 ML RIDER 20 MEQ/50 ML RTUPB IV SCH ×2 (02:32→05:20)
[2017-09-15] MEDS ORDERED: POTASSI CL 20 MEQ/50 ML RIDER 20 MEQ/50 ML RTUPB IV ONE (05:11)
[2017-09-15] MEDS: HEPARIN SOD (PORCINE) 5,000 UNIT/ML 1 ML SYRINGE SUBCUT SCH ×3 (06:44→21:38)
[2017-09-15 07:00] LABS: HEMATOCRIT 32.4 % (36.0-47.0); HEMOGLOBIN 10.8 g/dL (12.0-15.5); MEAN CORPUSCULAR HEMOGLOBIN 28.2 pg (27.0-33.4); MEAN CORPUSCULAR HGB CONC 33.4 g/dL (32.0-36.0); MEAN CORPUSCULAR VOLUME 84 fl (80-97); PLATELET COUNT 277 10^3/uL (150-450); RED BLOOD COUNT 3.84 10^6/uL (3.72-5.28); RED CELL DISTRIBUTION WIDTH 16.4 % (11.5-14.0); WHITE BLOOD COUNT 7.4 10^3/uL (4.0-10.5)
[2017-09-15 07:21] LABS: ALANINE AMINOTRANSFERASE 21 U/L (9-52); ALBUMIN 2.9 g/dL (3.5-5.0); ALKALINE PHOSPHATASE 40 U/L (38-126); ANION GAP 7 (5-19); ASPARTATE AMINO TRANSFERASE 9 U/L (14-36); BILIRUBIN,DIRECT 0.3 mg/dL (0.0-0.4); BILIRUBIN,TOTAL 0.9 mg/dL (0.2-1.3); BLOOD UREA NITROGEN 6 mg/dL (7-20); CALCIUM 8.3 mg/dL (8.4-10.2); CARBON DIOXIDE 23 mmol/L (22-30); CHLORIDE 108 mmol/L (98-107); GLUCOSE 107 mg/dL (75-110); POTASSIUM 3.9 mmol/L (3.6-5.0); SODIUM 138.2 mmol/L (137-145); TOTAL PROTEIN 5.7 g/dL (6.3-8.2)
--- NOTE | 2017-09-15 08:05 | EKG REPORT ---
SEVERITY:- ABNORMAL ECG - SINUS RHYTHM PROBABLE POSTERIOR INFARCT BORDERLINE T ABNORMALITIES, INFERIOR LEADS : Confirmed by: Anderson Steinberg MD 15-Sep-2017 08:04:26
[2017-09-15] MEDS: PANTOPRAZOLE SODIUM 40 MG VIAL IV SCH (08:50)
--- NOTE | 2017-09-15 10:56 | PDOC PROGRESS REPORT ---
Subjective Progress Note for:: 09/15/17 Subjective:: Patient is a 77-year-old female who recently started chemotherapy for multiple myeloma. This was started on 09/11/2017. She presented with 2 days of abdominal pain. CT imaging has demonstrated a contained perforated diverticulum. Surgery is following. The patient has had persistent abdominal pain overnight. Reason For Visit: PERFORATED VISCOUS Physical Exam Vital Signs: Temp Pulse Resp BP Pulse Ox 99.1 F 105 H 18 169/54 H 100 09/15/17 07:17 09/15/17 07:17 09/15/17 07:17 09/15/17 07:17 09/15/17 07:17 Intake & Output 09/14/17 09/15/17 09/16/17 06:59 06:59 06:59 Intake Total 950 Balance 950 Weight 57.9 kg Additional comments: The patient appears to be her stated age. She is mentating well this morning. She does appear to be in mild distress due to pain. Her facial appearance is unremarkable. Her lungs are noted to be clear to auscultation bilaterally but somewhat diminished in the bases posteriorly. Her cardiac exam is regular without murmurs, gallops or rubs. The abdomen is extremely tender with minimal palpation in all 4 quadrants. She does not however have guarding or rebound noted. Lower extremities are warm to touch without edema. The skin is clean, dry, warm and intact. Results Laboratory Results: 09/15/17 06:32 09/15/17 06:32 09/15/17 09/15/17 06:32 06:32 WBC 7.4 RBC 3.84 Hgb 10.8 L Hct 32.4 L MCV 84 MCH 28.2 MCHC 33.4 RDW 16.4 H Plt Count 277 Sodium 138.2 Potassium 3.9 Chloride 108 H Carbon Dioxide 23 Anion Gap 7 BUN 6 L Creatinine 0.49 L Est GFR ( Amer) > 60 Est GFR (Non-Af Amer) > 60 Glucose 107 Calcium 8.3 L Total Bilirubin 0.9 AST 9 L ALT 21 Alkaline Phosphatase 40 Total Protein 5.7 L Albumin 2.9 L Impressions: Abdomen/Pelvis CT 09/14/17 00:00 IMPRESSION: 4.2 cm contained perforated presumed diverticulitis at the sigmoid -descending colonic junction inflammatory changes, there is diffuse wall thickening through this region measuring up to 1.4 cm, underlying lesion is not excluded. Surgical consultation is recommended. Chest X-Ray 09/14/17 16:19 IMPRESSION: COPD with minimal left basilar atelectasis or scarring. Assessment & Plan - Diagnosis (1) Acute diverticulitis of intestine Is this a current diagnosis for this admission?: Yes Plan: Continue n.p.o. status, Zosyn and surgery consultation. (2) Essential hypertension Is this a current diagnosis for this admission?: Yes Plan: Patient is n.p.o. Will use intravenous medications for now until we can resume oral medications. (3) Perforated diverticulum of large intestine Is this a current diagnosis for this admission?: Yes (4) Sepsis Qualifiers: Sepsis type: sepsis due to unspecified organism Qualified Code(s): A41.9 - Sepsis, unspecified organism Is this a current diagnosis for this admission?: Yes Plan: Patient presented with fever and tachycardia consistent with sepsis. (5) Multiple myeloma Qualifiers: Multiple myeloma remission status: not in remission Qualified Code(s): C90.00 - Multiple myeloma not having achieved remission Is this a current diagnosis for this admission?: Yes Plan: We will begin medications when appropriate. - Time Time Spent with patient: 25-34 minutes - Inpatient Certification Medical Necessity: Need Close Monitoring Due to Risk of Patient Decompensation, Need for Pain Control, Need for IV Antibiotics, Risk of Complication if Not Cared For in Hospital
--- NOTE | 2017-09-15 13:06 | Progress Note ---
Provider Note Provider Note: In regards to the patient's Revlimid and dexamethasone I did speak to Dr. Pat Woodruff who is covering today for Dr. Larisa Raymond. It is not recommended to start these medications at this time.
[2017-09-15] MEDS: PIPERACILLIN SODIUM/TAZOBACTAM 3.375 GM in NORMAL SALINE 100 ML IV SCH ×2 (13:24→20:07)
[2017-09-15] MEDS: POTASSI CL 20 MEQ/1/2NS 1L 20 MEQ/1,000 ML RTUINJ IV PRN (13:34)
[2017-09-15] MEDS ORDERED: FENTANYL CITRATE INJ/PF 100 MCG/2 ML AMPUL ONE (17:18)
[2017-09-15] MEDS ORDERED: MIDAZOLAM 2 MG/2 ML INJ ONE (17:25)
--- NOTE | 2017-09-15 18:48 | PROGRESS NOTE E ---
Progress Note NAME: CORONA TORRES : 1940 AGE: 77Y DATE: 09/15/2017 ROOM: 326 SUBJECTIVE: The patient was admitted to the hospital service and surgery consulting for acute abdominal pain. She was worked up and found to have evidence of contained pericolonic abscess in the sigmoid colon, Hinchey Classification I. She was started on IV antibiotic, Zosyn, has clinically improved. OBJECTIVE: VITAL SIGNS: Stable. GENERAL: The patient is in no acute distress. ABDOMEN: The abdomen is examined. No peritoneal signs, some localized right lower quadrant tenderness. There is no rigidity. DIAGNOSTIC STUDIES: Laboratory profile; hemoglobin down to 10.8, likely dilutional; white blood cell count remains within normal limits. ASSESSMENT: CLINICALLY IMPROVED, HINCHEY CLASSIFICATION I PERICOLONIC DIVERTICULAR PERFORATION WITH LOCALIZED ABSCESS. RECOMMENDATIONS: 1. Continue IV fluids, intravenous antibiotics. 2. Suggest starting sips of clear liquids. 3. Questions answered to patient's satisfaction. DICTATING PHYSICIAN: LAM HOFFMAN M.D. [id number] PHY#: [id number] ID: [id number] JOB#: [id number] ACCT: [id number] cc: >
--- NOTE | 2017-09-15 20:05 | RADIOLOGY REPORT (SQ) ---
EXAM DESCRIPTION: CT GUIDED PERCUT DRAIN W/CATH; CT NEEDLE PLACEMENT COMPLETED DATE/TIME: 09/15/2017 7:21 pm REASON FOR STUDY: abdominal abcess COMPARISON: None. TECHNIQUE: CT guided drainage of the left lower quadrant diverticular abscess performed with conscio us sedation. CT Fluoroscopy Time: 2.[address] scanners at this facility use dose modulation, iterative reconstruction, and/or weight based d osing when appropriate to reduce radiation dose to as low as reasonably achievable (ALARA). [facility]: Dose Right [facility]: CareDose [facility]: Dose Right [facility]: Teradose 4D [facility]: Tweet Category RADIATION DOSE: mGy. FINDINGS: The procedure was discussed with the patient and her , and the patient agreed to th e procedure. Prior to the procedure, a time out was performed to verify the patient's identity and pl anned procedure. IV sedation was administered and physician direction by the registered nurse using 0.5 milligrams of Versed and 100 micrograms of fentanyl. Physiologic monitoring was provided before, during, and after sedation. The total sedation time was 35 minutes. Documentation face to face time, the performing proceduralist, spent monitoring the patient: [address] scanning was performed to localize the percutaneous site for the abscess drainage appr [facility]. After sterile skin prep and local lidocaine for skin and deep tissue anesthesia, an 18 gauge needle w as used to access the left lower quadrant abscess drainage. There was prompt return of purulent mate rial, specimens were sent for Gram stain culture and sensitivity. A 0.38 guidewire was placed throug h the needle, the needle was withdrawn, the tract was dilated with an 8 Maldivian dilator, and a 10 Fren ch locking pigtail catheter was placed into the abscess cavity. Further return of purulent material. Pigtail was locked in place, secured to the patient's skin. Abscess cavity was flushed with steril e saline, the catheter was then placed to an accordion suction bag. There were no immediate complica tions. Culture is pending at the time of dictation. IMPRESSION: CT GUIDED DIVERTICULAR ABSCESS DRAINAGE PERFORMED WITHOUT IMMEDIATE COMPLICATION. FINDI NGS DISCUSSED WITH DR. HOFFMAN COMMENT: Quality ID 145: Final reports for procedures using fluoroscopy that document radiation exp osure indices, or exposure time and number of fluorographic images (if radiation exposure indices are not available) Patient medication list reviewed: Yes- Quality ID# [id number]:Eligible professional attests to documenting i n the medical record they obtained, updated, or reviewed the patient's current medications.. TECHNICAL DOCUMENTATION: JOB ID: [id number] Quality ID# 436: Final reports with documentation of one or more dose reduction techniques (e.g., Aut omated exposure control, adjustment of the mA and/or kV according to patient size, use of iterative r econstruction technique) 2010 [employer]- All Rights Reserved Reading location - IP/workstation name: [email or web address]
--- NOTE | 2017-09-15 20:05 | RADIOLOGY REPORT (SQ) ---
EXAM DESCRIPTION: CT GUIDED PERCUT DRAIN W/CATH; CT NEEDLE PLACEMENT COMPLETED DATE/TIME: 09/15/2017 7:21 pm REASON FOR STUDY: abdominal abcess COMPARISON: None. TECHNIQUE: CT guided drainage of the left lower quadrant diverticular abscess performed with conscio us sedation. CT Fluoroscopy Time: 2.[address] scanners at this facility use dose modulation, iterative reconstruction, and/or weight based d osing when appropriate to reduce radiation dose to as low as reasonably achievable (ALARA). [facility]: Dose Right [facility]: CareDose [facility]: Dose Right [facility]: Teradose 4D [facility]: [facility] RADIATION DOSE: mGy. FINDINGS: The procedure was discussed with the patient and her , and the patient agreed to th e procedure. Prior to the procedure, a time out was performed to verify the patient's identity and pl anned procedure. IV sedation was administered and physician direction by the registered nurse using 0.5 milligrams of Versed and 100 micrograms of fentanyl. Physiologic monitoring was provided before, during, and after sedation. The total sedation time was 35 minutes. Documentation face to face time, the performing proceduralist, spent monitoring the patient: [address] scanning was performed to localize the percutaneous site for the abscess drainage appr [facility]. After sterile skin prep and local lidocaine for skin and deep tissue anesthesia, an 18 gauge needle w as used to access the left lower quadrant abscess drainage. There was prompt return of purulent mate rial, specimens were sent for Gram stain culture and sensitivity. A 0.38 guidewire was placed throug h the needle, the needle was withdrawn, the tract was dilated with an 8 [place] dilator, and a 10 Fren ch locking pigtail catheter was placed into the abscess cavity. Further return of purulent material. Pigtail was locked in place, secured to the patient's skin. Abscess cavity was flushed with steril e saline, the catheter was then placed to an accordion suction bag. There were no immediate complica tions. Culture is pending at the time of dictation. IMPRESSION: CT GUIDED DIVERTICULAR ABSCESS DRAINAGE PERFORMED WITHOUT IMMEDIATE COMPLICATION. FINDI NGS DISCUSSED WITH DR. HOFFMAN COMMENT: Quality ID [id number]: Final reports for procedures using fluoroscopy that document radiation exp osure indices, or exposure time and number of fluorographic images (if radiation exposure indices are not available) Patient medication list reviewed: Yes- Quality ID# [id number]:Eligible professional attests to documenting i n the medical record they obtained, updated, or reviewed the patient's current medications.. TECHNICAL DOCUMENTATION: JOB ID: [id number] Quality ID# [id number]: Final reports with documentation of one or more dose reduction techniques (e.g., Aut omated exposure control, adjustment of the mA and/or kV according to patient size, use of iterative r econstruction technique) 2010 [employer]- All Rights Reserved Reading location - IP/workstation name: [email or web address]
[2017-09-15] MEDS ORDERED: GLUCAGON,HUMAN RECOMB 1 MG INJ SUBCUT PRN (23:38)
[2017-09-15] MEDS ORDERED: DEXTROSE 50%-WATER 25 GM/50 ML DISP.SYRIN IV PRN ×2 (23:38)
[2017-09-15] MEDS ORDERED: DEXTROSE 40% GEL 15 GM TUBE PO PRN ×2 (23:38)
[2017-09-16] MEDS: PIPERACILLIN SODIUM/TAZOBACTAM 3.375 GM in NORMAL SALINE 100 ML IV SCH ×5 (00:19→20:30)
[2017-09-16] MEDS: HEPARIN SOD (PORCINE) 5,000 UNIT/ML 1 ML SYRINGE SUBCUT SCH ×3 (05:10→21:10)
[2017-09-16 06:15] LABS: FLUID TYPE PERITONEAL
[2017-09-16 06:17] LABS: FLUID COLOR RED; FLUID SOURCE ABDOMEN
[2017-09-16 06:18] LABS: FLUID APPEARANCE SLIGHTLY HAZY; FLUID VISCOSITY SLIGHTLY VISCOUS
[2017-09-16 06:57] LABS: ABSOLUTE LYMPHOCYTES (AUTO) 0.6 10^3/uL (0.5-4.7); ABSOLUTE MONOCYTES (AUTO) 0.8 10^3/uL (0.1-1.4); ABSOLUTE NEUT (AUTO) 5.5 10^3/uL (1.7-8.2); BASOPHILS % (AUTO) 0.6 % (0-2); EOSINOPHILS % (AUTO) 0.7 % (0-6); HEMATOCRIT 28.8 % (36.0-47.0); HEMOGLOBIN 9.5 g/dL (12.0-15.5); LYMPHOCYTES % (AUTO) 8.4 % (13-45); MEAN CORPUSCULAR HEMOGLOBIN 27.7 pg (27.0-33.4); MEAN CORPUSCULAR VOLUME 84 fl (80-97); MONOCYTES % (AUTO) 11.1 % (3-13); PLATELET COUNT 232 10^3/uL (150-450); RED BLOOD COUNT 3.43 10^6/uL (3.72-5.28); RED CELL DISTRIBUTION WIDTH 16.2 % (11.5-14.0); SEGMENTED NEUTROPHILS % (AUTO) 79.2 % (42-78); TOTAL CELLS COUNTED % (AUTO) 100 %; WHITE BLOOD COUNT 6.9 10^3/uL (4.0-10.5)
[2017-09-16 07:18] LABS: ANION GAP 8 (5-19); BLOOD UREA NITROGEN 6 mg/dL (7-20); CALCIUM 7.9 mg/dL (8.4-10.2); CARBON DIOXIDE 22 mmol/L (22-30); CHLORIDE 106 mmol/L (98-107); GLUCOSE 57 mg/dL (75-110); PHOSPHORUS 2.6 mg/dL (2.5-4.5); SODIUM 136.1 mmol/L (137-145)
[2017-09-16 07:27] LABS: POTASSIUM 3.1 mmol/L (3.6-5.0)
[2017-09-16] MEDS: PANTOPRAZOLE SODIUM 40 MG VIAL IV SCH (09:49)
[2017-09-16] MEDS: POTASSI CL 20 MEQ/1/2NS 1L 20 MEQ/1,000 ML RTUINJ IV PRN (09:57)
[2017-09-16] MEDS ORDERED: LENALIDOMIDE 15 MG PO SCH (10:00)
--- NOTE | 2017-09-16 12:30 | PDOC PROGRESS REPORT ---
Subjective Progress Note for:: 09/16/17 Subjective:: Patient is a 77-year-old female who recently started chemotherapy for multiple myeloma. This was started on 09/11/2017. She presented with 2 days of abdominal pain. CT imaging has demonstrated a contained perforated diverticulum. Surgery is following. Patient states that her abdominal pain is improving. She did not have any subjective fevers or chills overnight. She states that she did have a normal and formed bowel movement yesterday but she is not passing any flatus. Reason For Visit: PERFORATED VISCOUS Physical Exam Vital Signs: Temp Pulse Resp BP Pulse Ox 98.7 F 89 16 118/50 L 98 09/16/17 08:04 09/16/17 08:04 09/16/17 08:04 09/16/17 08:04 09/16/17 08:04 Intake & Output 09/15/17 09/16/17 09/17/17 06:59 06:59 06:59 Intake Total 950 2057 Output Total 370 Balance 950 1687 Weight 57.9 kg 62.2 kg Additional comments: The patient appears to be nontoxic and not in any distress. Her cognition is normal. Her facial appearance is unremarkable. Her lungs are clear to auscultation bilaterally. Her abdominal exam is softer today, however, she appears to be exquisitely tender in the left lower quadrant. She does have a drain in place. There is a minimal amount of sanguinous fluid in the drain about 5 mL. The patient's lower extremities are warm to touch without any edema. The skin is clean, warm, dry and intact without lesions or rashes. Results Laboratory Results: 09/16/17 05:57 09/16/17 05:57 09/16/17 09/16/17 09/16/17 05:15 05:57 05:57 WBC 6.9 RBC 3.43 L Hgb 9.5 L Hct 28.8 L MCV 84 MCH 27.7 MCHC 33.0 RDW 16.2 H Plt Count 232 Seg Neutrophils % 79.2 H Lymphocytes % 8.4 L Monocytes % 11.1 Eosinophils % 0.7 Basophils % 0.6 Absolute Neutrophils 5.5 Absolute Lymphocytes 0.6 Absolute Monocytes 0.8 Absolute Eosinophils 0.0 Absolute Basophils 0.0 Sodium 136.1 L Potassium 3.1 L Chloride 106 Carbon Dioxide 22 Anion Gap 8 BUN 6 L Creatinine 0.54 Est GFR ( Amer) > 60 Est GFR (Non-Af Amer) > 60 Glucose 57 L Calcium 7.9 L Phosphorus 2.6 Magnesium 1.7 Fluid Type PERITONEAL Fluid Source ABDOMEN Fluid Color RED Fluid Appearance SLIGHTLY HAZY Fluid Viscosity SLIGHTLY VISCOUS Fluid WBC 4222 Fluid RBC 41781 Impressions: Abdomen/Pelvis CT 09/14/17 00:00 IMPRESSION: 4.2 cm contained perforated presumed diverticulitis at the sigmoid -descending colonic junction inflammatory changes, there is diffuse wall thickening through this region measuring up to 1.4 cm, underlying lesion is not excluded. Surgical consultation is recommended. Chest X-Ray 09/14/17 16:19 IMPRESSION: COPD with minimal left basilar atelectasis or scarring. Guidance Needle Placement CT 09/15/17 00:00 IMPRESSION: CT GUIDED DIVERTICULAR ABSCESS DRAINAGE PERFORMED WITHOUT IMMEDIATE COMPLICATION. FINDINGS DISCUSSED WITH DR. HOFFMAN Percutaneous Drainage 09/15/17 00:00 IMPRESSION: CT GUIDED DIVERTICULAR ABSCESS DRAINAGE PERFORMED WITHOUT IMMEDIATE COMPLICATION. FINDINGS DISCUSSED WITH DR. HOFFMAN Assessment & Plan - Diagnosis (1) Acute diverticulitis of intestine Is this a current diagnosis for this admission?: Yes Plan: Continue n.p.o. status, Zosyn and surgery consultation. (2) Essential hypertension Is this a current diagnosis for this admission?: Yes Plan: Patient is n.p.o. Will use intravenous medications for now until we can resume oral medications. (3) Perforated diverticulum of large intestine Is this a current diagnosis for this admission?: Yes Plan: She remains very tender. Also, she has had significant decrease in her hemoglobin. Surgery will be reevaluating the patient today. (4) Sepsis Qualifiers: Sepsis type: sepsis due to unspecified organism Qualified Code(s): A41.9 - Sepsis, unspecified organism Is this a current diagnosis for this admission?: Yes Plan: Patient presented with fever and tachycardia consistent with sepsis. (5) Multiple myeloma Qualifiers: Multiple myeloma remission status: not in remission Qualified Code(s): C90.00 - Multiple myeloma not having achieved remission Is this a current diagnosis for this admission?: Yes Plan: We will begin medications when appropriate. However, at this time I am going to hold the patient's Revlimid and dexamethasone. She was receiving very high dose of dexamethasone once weekly during the weeks that she gets the Revlimid at 34 mg per dose. I think this likely contributed to her smoldering presentation. I Did call her oncologist's office yesterday and I was instructed to hold these medications. - Time Time Spent with patient: 25-34 minutes - Inpatient Certification Medical Necessity: Significant Comorbidiites Make Outpatient Treatment Too Risky , Need Close Monitoring Due to Risk of Patient Decompensation, Need for Pain Control, Need for IV Antibiotics, Risk of Complication if Not Cared For in Hospital, Risk of Diagnosis Which Will Require Inpatient Eval/Care/Monitoring
[2017-09-16] MEDS: MAGNESIUM SULFATE/D5W 1 GM/100 ML RTUPB IV SCH ×2 (14:30→15:40)
--- NOTE | 2017-09-16 15:18 | PDOC H&P ---
History of Present Illness Admission Date/PCP: 09/14/17 22:12 CADEN LOCO MD History of Present Illness: Patient still having some abdominal pain. Had a percutaneous drain installed by Dr. Hagen. Minimal output. SHe is voiding. Past Medical History Cardiac Medical History: Reports: Hyperlipidema, Hypertension Malignancy Medical History: Reports: Breast Cancer - Post right lumpectomy with a chemoradiation., Other - Myeloma, recurrent. She was restarted on chemo on . Hematology: Reports: Anemia Past Surgical History Past Surgical History: Reports: Hysterectomy, Orthopedic Surgery - pin in L leg , Other - Right lumpectomy. Social History Smoking Status: Never Smoker Cigarettes Packs Per Day: 0 - She used to smoke less than a pack a day for about 10 years. She quit the more than 30 years ago. Frequency of Alcohol Use: None Hx Recreational Drug Use: No Drugs: None Hx Prescription Drug Abuse: No - Advance Directive Resuscitation Status: Full Code Family History Family History: Reviewed & Not Pertinent Parental Family History Reviewed: Yes Children Family History Reviewed: Yes Sibling(s) Family History Reviewed.: Yes Medication/Allergy Home Medications: Aspirin [Aspirin EC] 162 mg PO DAILY 09/15/17 Atorvastatin Calcium [Lipitor 10 mg Tablet] 10 mg PO QHS 09/15/17 Dexamethasone [Decadron 4 Mg Tablet] 32 mg PO MO@1000 09/15/17 Lenalidomide [Revlimid] 15 mg PO DAILY 09/15/17 Lisinopril [Prinivil 10 mg Tablet] 10 mg PO DAILY 09/15/17 Omeprazole 20 mg PO Q6AM 09/15/17 Potassium Chloride [Klor-Con 10 Meq Tablet.sa] 20 meq PO BID 09/15/17 Sennosides/Docusate Sodium [Senna-S Tablet] 1 each PO DAILY 09/15/17 Allergies/Adverse Reactions: No Known Allergies Allergy (Verified 09/14/17 16:01) Physical Exam Vital Signs: Temp Pulse Resp BP Pulse Ox 98.6 F 86 16 138/54 H 100 09/16/17 11:59 09/16/17 11:59 09/16/17 11:59 09/16/17 11:59 09/16/17 11:59 Intake & Output 09/15/17 09/16/17 09/17/17 06:59 06:59 06:59 Intake Total 950 2057 Output Total 370 Balance 950 1687 Weight 57.9 kg 62.2 kg General appearance: PRESENT: no acute distress GI/Abdominal exam: PRESENT: other - Patient remains tender around drain site with some guarding Results Laboratory Results: 09/16/17 05:57 09/16/17 05:57 09/16/17 09/16/17 09/16/17 05:15 05:57 05:57 WBC 6.9 RBC 3.43 L Hgb 9.5 L Hct 28.8 L MCV 84 MCH 27.7 MCHC 33.0 RDW 16.2 H Plt Count 232 Seg Neutrophils % 79.2 H Lymphocytes % 8.4 L Monocytes % 11.1 Eosinophils % 0.7 Basophils % 0.6 Absolute Neutrophils 5.5 Absolute Lymphocytes 0.6 Absolute Monocytes 0.8 Absolute Eosinophils 0.0 Absolute Basophils 0.0 Sodium 136.1 L Potassium 3.1 L Chloride 106 Carbon Dioxide 22 Anion Gap 8 BUN 6 L Creatinine 0.54 Est GFR ( Amer) > 60 Est GFR (Non-Af Amer) > 60 Glucose 57 L Calcium 7.9 L Phosphorus 2.6 Magnesium 1.7 Fluid Type PERITONEAL Fluid Source ABDOMEN Fluid Color RED Fluid Appearance SLIGHTLY HAZY Fluid Viscosity SLIGHTLY VISCOUS Fluid WBC 4222 Fluid RBC 87702 Impressions: Abdomen/Pelvis CT 09/14/17 00:00 IMPRESSION: 4.2 cm contained perforated presumed diverticulitis at the sigmoid -descending colonic junction inflammatory changes, there is diffuse wall thickening through this region measuring up to 1.4 cm, underlying lesion is not excluded. Surgical consultation is recommended. Chest X-Ray 09/14/17 16:19 IMPRESSION: COPD with minimal left basilar atelectasis or scarring. Guidance Needle Placement CT 09/15/17 00:00 IMPRESSION: CT GUIDED DIVERTICULAR ABSCESS DRAINAGE PERFORMED WITHOUT IMMEDIATE COMPLICATION. FINDINGS DISCUSSED WITH DR. HOFFMAN Percutaneous Drainage 09/15/17 00:00 IMPRESSION: CT GUIDED DIVERTICULAR ABSCESS DRAINAGE PERFORMED WITHOUT IMMEDIATE COMPLICATION. FINDINGS DISCUSSED WITH DR. HOFFMAN Assessment & Plan - Diagnosis (1) Perforated diverticulum of large intestine Is this a current diagnosis for this admission?: Yes Plan: Hinchey classification 1 pericolonic abscess now status post percutaneous drainage by the radiology team, clinically stable not deteriorating but not out of the aguirre either Recommendations 1. We will add Flagyl to the antimicrobial coverage 2. Continue drain management. 3. I did speak with the patient has been about possibility of clinical deterioration, need for emergent surgery, specifically colectomy, colostomy Parson's procedure and why this would be necessary on an unprepped bowel: A gentle bowel prep could be initiated in the interim. 4. Patient and expressed concerns about patient's comorbidities including multiple myeloma. I told her that our priority right now is getting her over this acute colonic perforation. I Did speak to Dr. Boone about my assessment today.
[2017-09-16] MEDS: POTASSI CL 20 MEQ/50 ML RIDER 20 MEQ/50 ML RTUPB IV SCH ×2 (17:40→20:53)
[2017-09-16] MEDS ORDERED: METRONIDAZOLE 500 MG/NS RTU 100 ML IV SCH (18:00)
[2017-09-16] MEDS ORDERED: POTASSI CL 20 MEQ/50 ML RIDER 20 MEQ/50 ML RTUPB IV ONE (19:45)
[2017-09-17] MEDS: POTASSI CL 20 MEQ/1/2NS 1L 20 MEQ/1,000 ML RTUINJ IV PRN (00:11)
[2017-09-17] MEDS: METRONIDAZOLE 500 MG/NS RTU 100 ML IV SCH ×5 (00:11→23:18)
[2017-09-17] MEDS: PIPERACILLIN SODIUM/TAZOBACTAM 3.375 GM in NORMAL SALINE 100 ML IV SCH ×4 (02:39→21:56)
[2017-09-17] MEDS: HEPARIN SOD (PORCINE) 5,000 UNIT/ML 1 ML SYRINGE SUBCUT SCH ×3 (06:03→22:09)
[2017-09-17 07:49] LABS: ABSOLUTE EOSINOPHILS # (AUTO) 0.1 10^3/uL (0.0-0.6); ABSOLUTE LYMPHOCYTES (AUTO) 0.4 10^3/uL (0.5-4.7); ABSOLUTE MONOCYTES (AUTO) 0.5 10^3/uL (0.1-1.4); ABSOLUTE NEUT (AUTO) 5.5 10^3/uL (1.7-8.2); BASOPHILS % (AUTO) 0.3 % (0-2); EOSINOPHILS % (AUTO) 1.4 % (0-6); HEMATOCRIT 29.5 % (36.0-47.0); HEMOGLOBIN 9.9 g/dL (12.0-15.5); LYMPHOCYTES % (AUTO) 5.6 % (13-45); MEAN CORPUSCULAR HGB CONC 33.4 g/dL (32.0-36.0); MEAN CORPUSCULAR VOLUME 84 fl (80-97); MONOCYTES % (AUTO) 7.3 % (3-13); PLATELET COUNT 287 10^3/uL (150-450); RED BLOOD COUNT 3.52 10^6/uL (3.72-5.28); RED CELL DISTRIBUTION WIDTH 16.2 % (11.5-14.0); SEGMENTED NEUTROPHILS % (AUTO) 85.4 % (42-78); TOTAL CELLS COUNTED % (AUTO) 100 %; WHITE BLOOD COUNT 6.4 10^3/uL (4.0-10.5)
[2017-09-17 08:00] LABS: ANION GAP 11 (5-19); BLOOD UREA NITROGEN 3 mg/dL (7-20); CALCIUM 7.7 mg/dL (8.4-10.2); CARBON DIOXIDE 22 mmol/L (22-30); CHLORIDE 103 mmol/L (98-107); GLUCOSE 84 mg/dL (75-110); POTASSIUM 3.6 mmol/L (3.6-5.0); SODIUM 136.2 mmol/L (137-145)
--- NOTE | 2017-09-17 09:45 | PDOC PROGRESS REPORT ---
Subjective Progress Note for:: 09/17/17 Reason For Visit: PERFORATED VISCOUS Patient is hospital day 4 complicated diverticulitis, 2 days status post percutaneous drain placed by IR, feeling better, tolerating clear liquids, on dual antimicrobial therapy Physical Exam Vital Signs: Temp Pulse Resp BP Pulse Ox 98.2 F 105 H 16 141/63 H 99 09/17/17 07:49 09/17/17 07:49 09/17/17 07:49 09/17/17 07:49 09/17/17 07:49 Intake & Output 09/16/17 09/17/17 09/18/17 06:59 06:59 06:59 Intake Total 2057 1708 Output Total 370 3120 Balance 1687 -1412 Weight 62.2 kg 59.6 kg General appearance: PRESENT: no acute distress GI/Abdominal exam: PRESENT: other - Last tender abdomen; drain flushed proximally and distally. Minimal output Results Laboratory Results: 09/17/17 06:13 09/17/17 06:13 09/17/17 09/17/17 06:13 06:13 WBC 6.4 RBC 3.52 L Hgb 9.9 L Hct 29.5 L MCV 84 MCH 28.0 MCHC 33.4 RDW 16.2 H Plt Count 287 Seg Neutrophils % 85.4 H Lymphocytes % 5.6 L Monocytes % 7.3 Eosinophils % 1.4 Basophils % 0.3 Absolute Neutrophils 5.5 Absolute Lymphocytes 0.4 L Absolute Monocytes 0.5 Absolute Eosinophils 0.1 Absolute Basophils 0.0 Sodium 136.2 L Potassium 3.6 Chloride 103 Carbon Dioxide 22 Anion Gap 11 BUN 3 L Creatinine 0.50 L Est GFR ( Amer) > 60 Est GFR (Non-Af Amer) > 60 Glucose 84 Calcium 7.7 L Magnesium 2.3 Impressions: Abdomen/Pelvis CT 09/14/17 00:00 IMPRESSION: 4.2 cm contained perforated presumed diverticulitis at the sigmoid -descending colonic junction inflammatory changes, there is diffuse wall thickening through this region measuring up to 1.4 cm, underlying lesion is not excluded. Surgical consultation is recommended. Chest X-Ray 09/14/17 16:19 IMPRESSION: COPD with minimal left basilar atelectasis or scarring. Guidance Needle Placement CT 09/15/17 00:00 IMPRESSION: CT GUIDED DIVERTICULAR ABSCESS DRAINAGE PERFORMED WITHOUT IMMEDIATE COMPLICATION. FINDINGS DISCUSSED WITH DR. HOFFMAN Percutaneous Drainage 09/15/17 00:00 IMPRESSION: CT GUIDED DIVERTICULAR ABSCESS DRAINAGE PERFORMED WITHOUT IMMEDIATE COMPLICATION. FINDINGS DISCUSSED WITH DR. HOFFMAN Assessment & Plan - Diagnosis (1) Perforated diverticulum of large intestine Is this a current diagnosis for this admission?: Yes Plan: Hospital day 4 status post localized pericolonic perforation of the sigmoid colon, Hinchey classification 1, successfully improving with intravenous antibiotics, liquids, and percutaneous drainage Recommendations 1. Continue current therapy; continue clear liquids 2. Anticipate patient going home on p.o. antibiotics, and percutaneous drain, with drain care, in the next 24 hours 3. Plan the patient on an outpatient basis she will have drain removed after interval CT scan of the abdomen confirming abscess linkage 4. Patient will likely require subsequent sigmoid colectomy; ideally she should have a preoperative colonoscopy; the intent here is for her to undergo a single staged operation at a subsequent time. She is not too enthused about undergoing surgery.
[2017-09-17] MEDS: PANTOPRAZOLE SODIUM 40 MG VIAL IV SCH (09:59)
[2017-09-17] MEDS ORDERED: ACETAMINOPHEN 325 MG TABLET ONE (11:34)
[2017-09-17] MEDS ORDERED: ACETAMINOPHEN 325 MG TABLET PO PRN (14:47)
--- NOTE | 2017-09-17 15:20 | PDOC PROGRESS REPORT ---
Subjective Progress Note for:: 09/17/17 Subjective:: Patient is a 77-year-old female who recently started chemotherapy for multiple myeloma. This was started on 09/11/2017. She presented with 2 days of abdominal pain. CT imaging has demonstrated a contained perforated diverticulum. Surgery is following. Patient states that her abdominal pain is improving. She did not have any subjective fevers or chills overnight. Her last bowel movement was Monday. She is passing flatus but she states that she is not passing much flatus and she feels a little bit distended. However, the pain in the left lower quadrant has improved significantly. Reason For Visit: PERFORATED VISCOUS Physical Exam Vital Signs: Temp Pulse Resp BP Pulse Ox 98.8 F 88 16 128/58 H 100 09/17/17 12:01 09/17/17 12:01 09/17/17 12:01 09/17/17 12:01 09/17/17 12:01 Intake & Output 09/16/17 09/17/17 09/18/17 06:59 06:59 06:59 Intake Total 2057 1708 Output Total 370 3120 Balance 1687 -1412 Weight 62.2 kg 59.6 kg Additional comments: The patient appears to be in good spirits. She is very interactive and talkative today. Her mentation is appropriate. Her lungs are clear to auscultation bilaterally. Her cardiac exam is regular without murmurs, gallops or rubs. The abdomen is softer today. She continues to have pain in the left lower quadrant but it is less than yesterday. The drain continues to put out serosanguineous drainage. Lower extremities are unremarkable. The skin is clean, warm, dry and intact. Results Laboratory Results: 09/17/17 06:13 09/17/17 06:13 09/17/17 09/17/17 06:13 06:13 WBC 6.4 RBC 3.52 L Hgb 9.9 L Hct 29.5 L MCV 84 MCH 28.0 MCHC 33.4 RDW 16.2 H Plt Count 287 Seg Neutrophils % 85.4 H Lymphocytes % 5.6 L Monocytes % 7.3 Eosinophils % 1.4 Basophils % 0.3 Absolute Neutrophils 5.5 Absolute Lymphocytes 0.4 L Absolute Monocytes 0.5 Absolute Eosinophils 0.1 Absolute Basophils 0.0 Sodium 136.2 L Potassium 3.6 Chloride 103 Carbon Dioxide 22 Anion Gap 11 BUN 3 L Creatinine 0.50 L Est GFR ( Amer) > 60 Est GFR (Non-Af Amer) > 60 Glucose 84 Calcium 7.7 L Magnesium 2.3 Impressions: Abdomen/Pelvis CT 09/14/17 00:00 IMPRESSION: 4.2 cm contained perforated presumed diverticulitis at the sigmoid -descending colonic junction inflammatory changes, there is diffuse wall thickening through this region measuring up to 1.4 cm, underlying lesion is not excluded. Surgical consultation is recommended. Chest X-Ray 09/14/17 16:19 IMPRESSION: COPD with minimal left basilar atelectasis or scarring. Guidance Needle Placement CT 09/15/17 00:00 IMPRESSION: CT GUIDED DIVERTICULAR ABSCESS DRAINAGE PERFORMED WITHOUT IMMEDIATE COMPLICATION. FINDINGS DISCUSSED WITH DR. BARNETT Percutaneous Drainage 09/15/17 00:00 IMPRESSION: CT GUIDED DIVERTICULAR ABSCESS DRAINAGE PERFORMED WITHOUT IMMEDIATE COMPLICATION. FINDINGS DISCUSSED WITH DR. BARNETT Assessment & Plan - Diagnosis (1) Acute diverticulitis of intestine Is this a current diagnosis for this admission?: Yes Plan: Continue Zosyn and Flagyl. Patient is on clear liquids. Surgery anticipates discharge in the next 24 hours. She will be discharged on oral antibiotics with the drain in place. She will likely require surgery in the near future. (2) Essential hypertension Is this a current diagnosis for this admission?: Yes Plan: Patient is n.p.o. Will continue intravenous medications for now until we can resume oral medications. (3) Perforated diverticulum of large intestine Is this a current diagnosis for this admission?: Yes Plan: General surgery is following. General surgery is happy with the patient's progress. Dr. Barnett feels that the patient may able to be discharged in the next 24-48 hours. He will need to go home with the drain in place on oral antibiotics., She will need a sigmoid colectomy. It is recommended that she have a colonoscopy prior to this surgery. (4) Sepsis Qualifiers: Sepsis type: sepsis due to unspecified organism Qualified Code(s): A41.9 - Sepsis, unspecified organism Is this a current diagnosis for this admission?: Yes Plan: Patient presented with fever and tachycardia consistent with sepsis. (5) Multiple myeloma Qualifiers: Multiple myeloma remission status: not in remission Qualified Code(s): C90.00 - Multiple myeloma not having achieved remission Is this a current diagnosis for this admission?: Yes Plan: Hold Revlimid and dexamethasone. - Time Time Spent with patient: 25-34 minutes - Inpatient Certification Medical Necessity: Need for IV Antibiotics
[2017-09-18] MEDS: PIPERACILLIN SODIUM/TAZOBACTAM 3.375 GM in NORMAL SALINE 100 ML IV SCH ×4 (03:08→21:53)
[2017-09-18] MEDS: METRONIDAZOLE 500 MG/NS RTU 100 ML IV SCH ×4 (05:24→23:09)
[2017-09-18] MEDS: HEPARIN SOD (PORCINE) 5,000 UNIT/ML 1 ML SYRINGE SUBCUT SCH ×3 (05:24→21:54)
[2017-09-18 05:43] LABS: ABSOLUTE EOSINOPHILS # (AUTO) 0.1 10^3/uL (0.0-0.6); ABSOLUTE LYMPHOCYTES (AUTO) 0.7 10^3/uL (0.5-4.7); ABSOLUTE MONOCYTES (AUTO) 0.6 10^3/uL (0.1-1.4); ABSOLUTE NEUT (AUTO) 3.9 10^3/uL (1.7-8.2); BASOPHILS % (AUTO) 0.7 % (0-2); EOSINOPHILS % (AUTO) 1.1 % (0-6); HEMATOCRIT 28.9 % (36.0-47.0); HEMOGLOBIN 9.7 g/dL (12.0-15.5); LYMPHOCYTES % (AUTO) 12.6 % (13-45); MEAN CORPUSCULAR HEMOGLOBIN 28.1 pg (27.0-33.4); MEAN CORPUSCULAR HGB CONC 33.4 g/dL (32.0-36.0); MEAN CORPUSCULAR VOLUME 84 fl (80-97); MONOCYTES % (AUTO) 11.9 % (3-13); PLATELET COUNT 266 10^3/uL (150-450); RED BLOOD COUNT 3.44 10^6/uL (3.72-5.28); RED CELL DISTRIBUTION WIDTH 16.1 % (11.5-14.0); SEGMENTED NEUTROPHILS % (AUTO) 73.7 % (42-78); TOTAL CELLS COUNTED % (AUTO) 100 %; WHITE BLOOD COUNT 5.3 10^3/uL (4.0-10.5)
[2017-09-18 06:13] LABS: ANION GAP 13 (5-19); BLOOD UREA NITROGEN 3 mg/dL (7-20); CALCIUM 7.6 mg/dL (8.4-10.2); CARBON DIOXIDE 20 mmol/L (22-30); CHLORIDE 102 mmol/L (98-107); GLUCOSE 78 mg/dL (75-110); POTASSIUM 3.2 mmol/L (3.6-5.0); SODIUM 135.3 mmol/L (137-145)
[2017-09-18] MEDS ORDERED: POTASSI CL 20 MEQ/50 ML RIDER 20 MEQ/50 ML RTUPB IV SCH (08:30)
--- NOTE | 2017-09-18 11:39 | PDOC PROGRESS REPORT ---
Subjective Progress Note for:: 09/18/17 Subjective:: Patient is a 77-year-old female who recently started chemotherapy for multiple myeloma. This was started on 09/11/2017. She presented with 2 days of abdominal pain. CT imaging has demonstrated a contained perforated diverticulum. A percutaneous drain was placed by IR on 09/15/17. The patient's culture is growing E. coli and Klebsiella pneumoniae. Patient is currently on Zosyn and Flagyl. The plan per surgery will be to discharge the patient with the left lower quadrant drain in place. Continue oral antibiotics at discharge. Eventually, the patient will likely require a sigmoid colectomy. Dr. Barnett has recommended colonoscopy prior to this procedure. Dr. Ayon has ordered a repeat CT scan for tomorrow morning. Patient has been tolerating a clear liquid diet. I am going to advance her diet to a full liquid diet today. I called the patient's oncologist last Monday. Dr. Raymond was unavailable, but, I spoke to Dr. Pat Woodruff. She recommended that we hold the patient's Revlimid and dexamethasone. I explained to the patient that she will need timely follow-up with Dr. Rose after discharge. I asked the to make an appointment for later this week or early next week. Reason For Visit: PERFORATED VISCOUS Physical Exam Vital Signs: Temp Pulse Resp BP Pulse Ox 99.0 F 91 20 123/53 L 100 09/18/17 05:14 09/18/17 07:00 09/18/17 05:14 09/18/17 05:14 09/18/17 05:14 Intake & Output 09/17/17 09/18/17 09/19/17 06:59 06:59 06:59 Intake Total 1708 1684 Output Total 3120 1250 Balance -1412 434 Weight 59.6 kg Results Laboratory Results: 09/18/17 04:42 09/18/17 04:42 09/18/17 09/18/17 04:42 04:42 WBC 5.3 RBC 3.44 L Hgb 9.7 L Hct 28.9 L MCV 84 MCH 28.1 MCHC 33.4 RDW 16.1 H Plt Count 266 Seg Neutrophils % 73.7 Lymphocytes % 12.6 L Monocytes % 11.9 Eosinophils % 1.1 Basophils % 0.7 Absolute Neutrophils 3.9 Absolute Lymphocytes 0.7 Absolute Monocytes 0.6 Absolute Eosinophils 0.1 Absolute Basophils 0.0 Sodium 135.3 L Potassium 3.2 L Chloride 102 Carbon Dioxide 20 L Anion Gap 13 BUN 3 L Creatinine 0.52 Est GFR ( Amer) > 60 Est GFR (Non-Af Amer) > 60 Glucose 78 Calcium 7.6 L Magnesium 2.1 Impressions: Abdomen/Pelvis CT 09/14/17 00:00 IMPRESSION: 4.2 cm contained perforated presumed diverticulitis at the sigmoid -descending colonic junction inflammatory changes, there is diffuse wall thickening through this region measuring up to 1.4 cm, underlying lesion is not excluded. Surgical consultation is recommended. Chest X-Ray 09/14/17 16:19 IMPRESSION: COPD with minimal left basilar atelectasis or scarring. Guidance Needle Placement CT 09/15/17 00:00 IMPRESSION: CT GUIDED DIVERTICULAR ABSCESS DRAINAGE PERFORMED WITHOUT IMMEDIATE COMPLICATION. FINDINGS DISCUSSED WITH DR. BARNETT Percutaneous Drainage 09/15/17 00:00 IMPRESSION: CT GUIDED DIVERTICULAR ABSCESS DRAINAGE PERFORMED WITHOUT IMMEDIATE COMPLICATION. FINDINGS DISCUSSED WITH DR. BARNETT Assessment & Plan - Diagnosis (1) Acute diverticulitis of intestine Is this a current diagnosis for this admission?: Yes Plan: Continue IV antibiotics while inpatient. Dr. Ayon has ordered a repeat CT abdomen and pelvis for tomorrow. The tentative plan will be to discharge the patient with the percutaneous drain in place. However, the plan may change pending findings on tomorrow CT scan. Surgery is following. (2) Essential hypertension Is this a current diagnosis for this admission?: Yes Plan: Today, I will restart oral antihypertensives since I am advancing diet. (3) Perforated diverticulum of large intestine Is this a current diagnosis for this admission?: Yes Plan: As discussed above. (4) Sepsis Qualifiers: Sepsis type: sepsis due to unspecified organism Qualified Code(s): A41.9 - Sepsis, unspecified organism Is this a current diagnosis for this admission?: Yes Plan: Patient presented with fever and tachycardia due to abdominal infection. This presentation is consistent with sepsis. (5) Multiple myeloma Qualifiers: Multiple myeloma remission status: not in remission Qualified Code(s): C90.00 - Multiple myeloma not having achieved remission Is this a current diagnosis for this admission?: Yes Plan: Hold Revlimid and dexamethasone. - Time Time Spent with patient: 25-34 minutes - Inpatient Certification Medical Necessity: Need for IV Antibiotics, Risk of Complication if Not Cared For in Hospital, Risk of Diagnosis Which Will Require Inpatient Eval/Care/ Monitoring
[2017-09-18] MEDS: LISINOPRIL 10 MG TABLET PO SCH (13:55)
--- NOTE | 2017-09-18 19:02 | PDOC PROGRESS REPORT ---
Subjective Progress Note for:: 09/18/17 Subjective:: minimal pains and tolerating clears. Reason For Visit: PERFORATED VISCOUS Physical Exam Vital Signs: Temp Pulse Resp BP Pulse Ox 97.8 F 94 18 129/60 H 100 09/18/17 12:26 09/18/17 14:00 09/18/17 12:26 09/18/17 12:26 09/18/17 12:26 Intake & Output 09/17/17 09/18/17 09/19/17 06:59 06:59 06:59 Intake Total 1708 1684 400 Output Total 3120 1255 Balance -1412 429 400 Weight 59.6 kg Exam: drain in place. abd is soft with minimal tenderness LLQ Results Laboratory Results: 09/18/17 04:42 09/18/17 04:42 09/18/17 09/18/17 04:42 04:42 WBC 5.3 RBC 3.44 L Hgb 9.7 L Hct 28.9 L MCV 84 MCH 28.1 MCHC 33.4 RDW 16.1 H Plt Count 266 Seg Neutrophils % 73.7 Lymphocytes % 12.6 L Monocytes % 11.9 Eosinophils % 1.1 Basophils % 0.7 Absolute Neutrophils 3.9 Absolute Lymphocytes 0.7 Absolute Monocytes 0.6 Absolute Eosinophils 0.1 Absolute Basophils 0.0 Sodium 135.3 L Potassium 3.2 L Chloride 102 Carbon Dioxide 20 L Anion Gap 13 BUN 3 L Creatinine 0.52 Est GFR ( Amer) > 60 Est GFR (Non-Af Amer) > 60 Glucose 78 Calcium 7.6 L Magnesium 2.1 Impressions: Abdomen/Pelvis CT 09/14/17 00:00 IMPRESSION: 4.2 cm contained perforated presumed diverticulitis at the sigmoid -descending colonic junction inflammatory changes, there is diffuse wall thickening through this region measuring up to 1.4 cm, underlying lesion is not excluded. Surgical consultation is recommended. Chest X-Ray 09/14/17 16:19 IMPRESSION: COPD with minimal left basilar atelectasis or scarring. Guidance Needle Placement CT 09/15/17 00:00 IMPRESSION: CT GUIDED DIVERTICULAR ABSCESS DRAINAGE PERFORMED WITHOUT IMMEDIATE COMPLICATION. FINDINGS DISCUSSED WITH DR. HOFFMAN Percutaneous Drainage 09/15/17 00:00 IMPRESSION: CT GUIDED DIVERTICULAR ABSCESS DRAINAGE PERFORMED WITHOUT IMMEDIATE COMPLICATION. FINDINGS DISCUSSED WITH DR. HOFFMAN Assessment & Plan - Diagnosis (1) Perforated diverticulum of large intestine Is this a current diagnosis for this admission?: Yes - Time Time Spent with patient: 15-24 minutes - Inpatient Certification Medical Necessity: Need for IV Antibiotics, Risk of Complication if Not Cared For in Hospital - Plan Summary Plan Summary: OK to increase diet Will order Ct abd/pelvis as baseline prior to discharge in am
[2017-09-19] MEDS: PIPERACILLIN SODIUM/TAZOBACTAM 3.375 GM in NORMAL SALINE 100 ML IV SCH ×4 (02:21→23:01)
[2017-09-19] MEDS: HEPARIN SOD (PORCINE) 5,000 UNIT/ML 1 ML SYRINGE SUBCUT SCH ×3 (06:15→23:01)
[2017-09-19] MEDS: METRONIDAZOLE 500 MG/NS RTU 100 ML IV SCH ×4 (06:18→23:32)
[2017-09-19 06:54] LABS: ABSOLUTE EOSINOPHILS # (AUTO) 0.1 10^3/uL (0.0-0.6); ABSOLUTE LYMPHOCYTES (AUTO) 0.6 10^3/uL (0.5-4.7); ABSOLUTE MONOCYTES (AUTO) 0.7 10^3/uL (0.1-1.4); ABSOLUTE NEUT (AUTO) 4.1 10^3/uL (1.7-8.2); BASOPHILS % (AUTO) 0.7 % (0-2); EOSINOPHILS % (AUTO) 2.4 % (0-6); HEMOGLOBIN 9.7 g/dL (12.0-15.5); LYMPHOCYTES % (AUTO) 11.6 % (13-45); MEAN CORPUSCULAR HEMOGLOBIN 27.8 pg (27.0-33.4); MEAN CORPUSCULAR HGB CONC 33.5 g/dL (32.0-36.0); MEAN CORPUSCULAR VOLUME 83 fl (80-97); PLATELET COUNT 293 10^3/uL (150-450); RED BLOOD COUNT 3.49 10^6/uL (3.72-5.28); RED CELL DISTRIBUTION WIDTH 16.3 % (11.5-14.0); SEGMENTED NEUTROPHILS % (AUTO) 73.3 % (42-78); TOTAL CELLS COUNTED % (AUTO) 100 %; WHITE BLOOD COUNT 5.5 10^3/uL (4.0-10.5)
[2017-09-19 07:15] LABS: ANION GAP 10 (5-19); BLOOD UREA NITROGEN 3 mg/dL (7-20); CALCIUM 7.7 mg/dL (8.4-10.2); CARBON DIOXIDE 21 mmol/L (22-30); CHLORIDE 107 mmol/L (98-107); GLUCOSE 86 mg/dL (75-110); POTASSIUM 3.2 mmol/L (3.6-5.0)
[2017-09-19] MEDS: PANTOPRAZOLE SODIUM 40 MG VIAL IV SCH (09:34)
[2017-09-19] MEDS: POTASSI CL 20 MEQ/50 ML RIDER 20 MEQ/50 ML RTUPB IV SCH ×3 (09:34→20:44)
[2017-09-19] MEDS ORDERED: FENTANYL CITRATE INJ/PF 100 MCG/2 ML AMPUL ONE (10:14)
--- NOTE | 2017-09-19 10:39 | RADIOLOGY REPORT (SQ) ---
EXAM DESCRIPTION: CT ABD/PELVIS ORAL ONLY COMPLETED DATE/TIME: 09/19/2017 10:25 am REASON FOR STUDY: follow up for drainage of diverticulosis abscess COMPARISON: CT-guided catheter drainage, left lower quadrant abscess 09/15/2017 CT abdomen pelvis 09/14/2017 TECHNIQUE: CT scan of the abdomen and pelvis performed without intravenous or oral contrast. Images reviewed with lung, soft tissue, and bone windows. Reconstructed coronal and sagittal MPR images revi ewed. All images stored on PACS. All CT scanners at this facility use dose modulation, iterative reconstruction, and/or weight based d osing when appropriate to reduce radiation dose to as low as reasonably achievable (ALARA). [facility]: Dose Right [facility]: CareDose [facility]: Dose Right [facility]: Teradose 4D [facility]: Smart Sensitive Object RADIATION DOSE: CT Rad equipment meets quality standard of care and radiation dose reduction techniq ues were employed. CTDIvol: 3.8 mGy. DLP: 190 mGy-cm.mGy. LIMITATIONS: None. FINDINGS: The left lower quadrant diverticular abscess seen on 09/14/2017 has resolved. There is a short segment of colon wall thickening and luminal narrowing along the sigmoid colon adjac ent to the pigtail catheter in the site of prior abscess. Bowel wall inflammation is less extensive in the sigmoid colon as compared to CT 09/14/2017. There is no significant residual intraperitoneal a bscess cavity. No extravasation of oral contrast. The catheter has been pulled back since its insertion, 1 of the side sands is along the left lower qu adrant rectus sheath. There is a small amount of air and fluid along the superficial aspect of the l eft lower quadrant abdominal wall related to catheter flushing. These above findings were discussed with Dr. Ayon. After 50 mcg of IV fentanyl for pain control, the left lower quadrant drainage catheter was removed, and a sterile dressing applied to the catheter entry skin site. Patient did drink oral contrast for today's scan. There is no extravasation of oral contrast in the area of diverticular abscess. No CT evidence of bowel obstruction. Diffuse descending and sigmoid c olon diverticulosis is present. LOWER CHEST: Small hiatal hernia. No nodules or infiltrates. NON-CONTRASTED LIVER, SPLEEN, ADRENALS: Evaluation limited by lack of IV contrast. No identified sign ificant masses. PANCREAS: No masses. No peripancreatic inflammatory changes. GALLBLADDER: No identified stones by CT criteria. No inflammatory changes to suggest cholecystitis. RIGHT KIDNEY AND URETER: No suspicious masses. Assessment limited by lack of IV contrast. 2.5 cm cys t right upper pole kidney. No significant calcifications. No hydronephrosis or hydroureter. LEFT KIDNEY AND URETER: No suspicious masses. Assessment limited by lack of IV contrast. No signifi cant calcifications. No hydronephrosis or hydroureter. AORTA AND RETROPERITONEUM: No aneurysm. No retroperitoneal masses or adenopathy. BOWEL AND PERITONEAL CAVITY: Patient drank oral contrast. No bowel obstruction. No leakage of contr ast in the region of the diverticular abscess. APPENDIX: Normal. PELVIS, BLADDER, AND ABDOMINAL WALL:No abnormal masses. No free fluid. Bladder normal. Post hysterec selene BONES: No significant findings. OTHER: No other significant finding. IMPRESSION: Resolved left lower quadrant diverticular abscess. There is mild persistent inflammatio n along the sigmoid colon in the area of abscess, bowel wall thickening and luminal narrowing is impr vicky compared to CT exam 09/14/2017 Left lower quadrant abscess drainage catheter was removed while the patient was in the CT suite after IV fentanyl for pain control. No immediate complications post catheter removal. Small amount of air bubbles and fluid along the superficial aspect left lower quadrant abdominal wall likely related to flushing of the catheter. COMMENT: Quality ID # [id number]: Final reports with documentation of one or more dose reduction techniques (e.g., Automated exposure control, adjustment of the mA and/or kV according to patient size, use of iterative reconstruction technique) TECHNICAL DOCUMENTATION: JOB ID: [id number] [employer]- All Rights Reserved Reading location - IP/workstation name: [facility]
--- NOTE | 2017-09-19 11:23 | PDOC PROGRESS REPORT ---
Subjective Progress Note for:: 09/19/17 Subjective:: Patient seen on rounds. She is resting in bed her is at bedside. She denies any nausea, vomiting or abdominal pain at the present time. She denies any chest pain, shortness of breath or dyspnea. She denies any fever or chills overnight. Patient bowels did move they are somewhat loose. She states her abdominal pain is much improved from when she came in. She is waiting to have repeat CT of the abdomen and pelvis today to assess abscess. Percutaneous drain remains in place with very little output. Remaining review of systems are all negative Reason For Visit: PERFORATED VISCOUS Physical Exam Vital Signs: Temp Pulse Resp BP Pulse Ox 97.9 F 79 14 123/49 L 100 09/19/17 07:29 09/19/17 07:29 09/19/17 07:29 09/19/17 07:29 09/19/17 07:29 Intake & Output 09/18/17 09/19/17 09/20/17 06:59 06:59 06:59 Intake Total 1684 700 Output Total 1255 305 Balance 429 395 Weight 60.1 kg General appearance: PRESENT: no acute distress, thin, well-developed Head exam: PRESENT: atraumatic, normocephalic Eye exam: PRESENT: conjunctiva pink, EOMI, PERRLA. ABSENT: scleral icterus Ear exam: PRESENT: normal external ear exam Mouth exam: PRESENT: moist, tongue midline Neck exam: ABSENT: carotid bruit, JVD, lymphadenopathy, thyromegaly Respiratory exam: PRESENT: clear to auscultation abdelrahman, symmetrical, unlabored. ABSENT: rales, rhonchi, wheezes Cardiovascular exam: PRESENT: RRR. ABSENT: diastolic murmur, rubs, systolic murmur Pulses: PRESENT: normal dorsalis pedis pul Vascular exam: PRESENT: normal capillary refill GI/Abdominal exam: PRESENT: soft, tenderness - Left lower quadrant. ABSENT: distended, guarding, mass, organolmegaly, rebound Rectal exam: PRESENT: deferred Extremities exam: PRESENT: full ROM. ABSENT: calf tenderness, clubbing, pedal edema Musculoskeletal exam: PRESENT: ambulatory, full ROM Neurological exam: PRESENT: alert, awake, oriented to person, oriented to place , oriented to time, oriented to situation, CN II-XII grossly intact. ABSENT: motor sensory deficit Psychiatric exam: PRESENT: appropriate affect, normal mood. ABSENT: homicidal ideation, suicidal ideation Skin exam: PRESENT: dry, intact, warm. ABSENT: cyanosis, rash Results Laboratory Results: 09/19/17 06:00 09/19/17 06:00 09/19/17 09/19/17 06:00 06:00 WBC 5.5 RBC 3.49 L Hgb 9.7 L Hct 29.0 L MCV 83 MCH 27.8 MCHC 33.5 RDW 16.3 H Plt Count 293 Seg Neutrophils % 73.3 Lymphocytes % 11.6 L Monocytes % 12.0 Eosinophils % 2.4 Basophils % 0.7 Absolute Neutrophils 4.1 Absolute Lymphocytes 0.6 Absolute Monocytes 0.7 Absolute Eosinophils 0.1 Absolute Basophils 0.0 Sodium 138.0 Potassium 3.2 L Chloride 107 Carbon Dioxide 21 L Anion Gap 10 BUN 3 L Creatinine 0.49 L Est GFR ( Amer) > 60 Est GFR (Non-Af Amer) > 60 Glucose 86 Calcium 7.7 L Magnesium 2.1 Impressions: Chest X-Ray 09/14/17 16:19 IMPRESSION: COPD with minimal left basilar atelectasis or scarring. Guidance Needle Placement CT 09/15/17 00:00 IMPRESSION: CT GUIDED DIVERTICULAR ABSCESS DRAINAGE PERFORMED WITHOUT IMMEDIATE COMPLICATION. FINDINGS DISCUSSED WITH DR. HOFFMAN Percutaneous Drainage 09/15/17 00:00 IMPRESSION: CT GUIDED DIVERTICULAR ABSCESS DRAINAGE PERFORMED WITHOUT IMMEDIATE COMPLICATION. FINDINGS DISCUSSED WITH DR. HOFFMAN Abdomen/Pelvis CT 09/19/17 08:00 IMPRESSION: Resolved left lower quadrant diverticular abscess. There is mild persistent inflammation along the sigmoid colon in the area of abscess, bowel wall thickening and luminal narrowing is improved compared to CT exam 09/14/2017 Left lower quadrant abscess drainage catheter was removed while the patient was in the CT suite after IV fentanyl for pain control. No immediate complications post catheter removal. Small amount of air bubbles and fluid along the superficial aspect left lower quadrant abdominal wall likely related to flushing of the catheter. Assessment & Plan - Diagnosis (1) Perforated diverticulum of large intestine Is this a current diagnosis for this admission?: Yes Plan: Continues to drain is in place. Continues on IV antibiotics. General surgery is following. She is waiting to have repeat CT of the abdomen and pelvis to assess abscess and continued need for drain. She is tolerating full liquid diet. (2) Acute diverticulitis of intestine Is this a current diagnosis for this admission?: Yes Plan: As above in #1 (3) Essential hypertension Is this a current diagnosis for this admission?: Yes Plan: Continue current medication she is normotensive (4) Hypokalemia Is this a current diagnosis for this admission?: Yes Plan: Replete and monitor (5) Sepsis Qualifiers: Sepsis type: sepsis due to unspecified organism Qualified Code(s): A41.9 - Sepsis, unspecified organism Is this a current diagnosis for this admission?: Yes Plan: Secondary to perforated diverticulum. This has resolved with IV fluids and IV antibiotics. (6) HTN (hypertension) Qualifiers: Hypertension type: essential hypertension Qualified Code(s): I10 - Essential (primary) hypertension Plan: She is normotensive on current meds (7) Multiple myeloma Qualifiers: Multiple myeloma remission status: not in remission Qualified Code(s): C90.00 - Multiple myeloma not having achieved remission Is this a current diagnosis for this admission?: Yes Plan: Holding medications presently. She will follow up with hematology at discharge - Time Time Spent with patient: 25-34 minutes Total Critical Time (Minutes): 15 Medications reviewed and adjusted accordingly: Yes Anticipated discharge: Home with Homehealth
[2017-09-19] MEDS: LISINOPRIL 10 MG TABLET PO SCH (13:24)
--- NOTE | 2017-09-19 23:43 | PDOC PROGRESS REPORT ---
Subjective Progress Note for:: 09/19/17 Subjective:: LLQ pains,much improved Reason For Visit: PERFORATED VISCOUS Physical Exam Vital Signs: Temp Pulse Resp BP Pulse Ox 100.2 F 93 20 140/55 H 100 09/19/17 20:05 09/19/17 20:05 09/19/17 20:05 09/19/17 20:05 09/19/17 20:05 Intake & Output 09/18/17 09/19/17 09/20/17 06:59 06:59 06:59 Intake Total 1684 700 595 Output Total 1255 305 500 Balance 429 395 95 Weight 60.1 kg Exam: abd is soft with mild tenderness LLQ. Primarily along drain catheter site. Catheter removed by Dr Hagen since it has been dislodged and the abscess cavity has resolved. Results Laboratory Results: 09/19/17 06:00 09/19/17 06:00 09/19/17 09/19/17 06:00 06:00 WBC 5.5 RBC 3.49 L Hgb 9.7 L Hct 29.0 L MCV 83 MCH 27.8 MCHC 33.5 RDW 16.3 H Plt Count 293 Seg Neutrophils % 73.3 Lymphocytes % 11.6 L Monocytes % 12.0 Eosinophils % 2.4 Basophils % 0.7 Absolute Neutrophils 4.1 Absolute Lymphocytes 0.6 Absolute Monocytes 0.7 Absolute Eosinophils 0.1 Absolute Basophils 0.0 Sodium 138.0 Potassium 3.2 L Chloride 107 Carbon Dioxide 21 L Anion Gap 10 BUN 3 L Creatinine 0.49 L Est GFR ( Amer) > 60 Est GFR (Non-Af Amer) > 60 Glucose 86 Calcium 7.7 L Magnesium 2.1 Impressions: Chest X-Ray 09/14/17 16:19 IMPRESSION: COPD with minimal left basilar atelectasis or scarring. Guidance Needle Placement CT 09/15/17 00:00 IMPRESSION: CT GUIDED DIVERTICULAR ABSCESS DRAINAGE PERFORMED WITHOUT IMMEDIATE COMPLICATION. FINDINGS DISCUSSED WITH DR. HOFFMAN Percutaneous Drainage 09/15/17 00:00 IMPRESSION: CT GUIDED DIVERTICULAR ABSCESS DRAINAGE PERFORMED WITHOUT IMMEDIATE COMPLICATION. FINDINGS DISCUSSED WITH DR. HOFFMAN Abdomen/Pelvis CT 09/19/17 08:00 IMPRESSION: Resolved left lower quadrant diverticular abscess. There is mild persistent inflammation along the sigmoid colon in the area of abscess, bowel wall thickening and luminal narrowing is improved compared to CT exam 09/14/2017 Left lower quadrant abscess drainage catheter was removed while the patient was in the CT suite after IV fentanyl for pain control. No immediate complications post catheter removal. Small amount of air bubbles and fluid along the superficial aspect left lower quadrant abdominal wall likely related to flushing of the catheter. Assessment & Plan - Diagnosis (1) Perforated diverticulum of large intestine Is this a current diagnosis for this admission?: Yes - Time Time Spent with patient: 15-24 minutes - Plan Summary Plan Summary: Continue IV antibiotics until tomorrow. If WBC decreases and pains not increased can go home on po antibiotics another 10-14 days then follow up at the surgical clinic.
[2017-09-20] MEDS: PIPERACILLIN SODIUM/TAZOBACTAM 3.375 GM in NORMAL SALINE 100 ML IV SCH (04:12)
[2017-09-20] MEDS: METRONIDAZOLE 500 MG/NS RTU 100 ML IV SCH (05:13)
[2017-09-20] MEDS: HEPARIN SOD (PORCINE) 5,000 UNIT/ML 1 ML SYRINGE SUBCUT SCH (05:13)
[2017-09-20 06:12] LABS: ANION GAP 11 (5-19); CALCIUM 7.8 mg/dL (8.4-10.2); CARBON DIOXIDE 20 mmol/L (22-30); CHLORIDE 108 mmol/L (98-107); GLUCOSE 90 mg/dL (75-110); POTASSIUM 3.3 mmol/L (3.6-5.0); SODIUM 139.4 mmol/L (137-145)
[2017-09-20 06:17] LABS: BLOOD UREA NITROGEN < 2 mg/dL (7-20)
[2017-09-20 08:07] LABS: ABSOLUTE BASOPHILS # (AUTO) 0.1 10^3/uL (0.0-0.2); ABSOLUTE EOSINOPHILS # (AUTO) 0.1 10^3/uL (0.0-0.6); ABSOLUTE LYMPHOCYTES (AUTO) 0.6 10^3/uL (0.5-4.7); ABSOLUTE MONOCYTES (AUTO) 0.8 10^3/uL (0.1-1.4); ABSOLUTE NEUT (AUTO) 4.1 10^3/uL (1.7-8.2); EOSINOPHILS % (AUTO) 2.1 % (0-6); HEMATOCRIT 28.2 % (36.0-47.0); HEMOGLOBIN 9.6 g/dL (12.0-15.5); LYMPHOCYTES % (AUTO) 11.3 % (13-45); MEAN CORPUSCULAR HEMOGLOBIN 28.4 pg (27.0-33.4); MEAN CORPUSCULAR HGB CONC 33.9 g/dL (32.0-36.0); MEAN CORPUSCULAR VOLUME 84 fl (80-97); MONOCYTES % (AUTO) 14.2 % (3-13); PLATELET COUNT 310 10^3/uL (150-450); RED BLOOD COUNT 3.38 10^6/uL (3.72-5.28); RED CELL DISTRIBUTION WIDTH 16.1 % (11.5-14.0); SEGMENTED NEUTROPHILS % (AUTO) 71.4 % (42-78); TOTAL CELLS COUNTED % (AUTO) 100 %; WHITE BLOOD COUNT 5.7 10^3/uL (4.0-10.5)
[2017-09-20] MEDS: PANTOPRAZOLE SODIUM 40 MG VIAL IV SCH (09:53)
[2017-09-20] MEDS: LISINOPRIL 10 MG TABLET PO SCH (11:11)
[2017-09-20] MEDS ORDERED: CIPROFLOXACIN HCL 500 MG TABLET PO ONE (11:30)
[2017-09-20 12:43] VITALS: BP 126/45
--- NOTE | 2017-09-20 13:23 | PDOC DISCHARGE SUMMARY ---
General - Admit/Disc Date/PCP Admission Date/Primary Care Provider: 09/14/17 22:12 CADEN LOCO MD Discharge Date: 09/20/17 - Discharge Diagnosis (1) Perforated diverticulum of large intestine Is this a current diagnosis for this admission?: Yes Summary: She will need 10 more days of oral antibiotics. She needs follow-up with [place] surgery in 1 week and she will need colonoscopy in the next 4 -6 week (2) Acute diverticulitis of intestine Is this a current diagnosis for this admission?: Yes Summary: As above in #1 (3) Essential hypertension Is this a current diagnosis for this admission?: Yes Summary: Continue current medication (4) Hypokalemia Is this a current diagnosis for this admission?: Yes Summary: Pleaded and normal (5) Sepsis Is this a current diagnosis for this admission?: Yes Summary: Resolved secondary to diverticulitis, abscess improved viscus (6) Multiple myeloma Is this a current diagnosis for this admission?: Yes Summary: She will follow-up with her oncologist this week regarding her multiple myeloma medications and treatment. - Additional Information Resuscitation Status: Full Code Discharge Diet: Regular Discharge Activity: Activity As Tolerated, Balance Activity w/Rest Prescriptions: Ciprofloxacin HCl [Cipro 500 mg Tablet] 500 mg PO Q12 #20 tablet Metronidazole [Flagyl 500 mg Tablet] 500 mg PO Q8 #30 tablet Home Medications: Aspirin [Aspirin EC] 162 mg PO DAILY 09/15/17 Atorvastatin Calcium [Lipitor 10 mg Tablet] 10 mg PO QHS 09/15/17 Lisinopril [Prinivil 10 mg Tablet] 10 mg PO DAILY 09/15/17 Omeprazole 20 mg PO Q6AM 09/15/17 Potassium Chloride [Klor-Con 10 Meq Tablet.sa] 20 meq PO BID 09/15/17 Sennosides/Docusate Sodium [Senna-S Tablet] 1 each PO DAILY 09/15/17 Acetaminophen [Tylenol 325 mg Tablet] 650 mg PO Q4HP PRN tablet 09/20/17 Ciprofloxacin HCl [Cipro 500 mg Tablet] 500 mg PO Q12 #20 tablet 09/20/17 Dexamethasone [Decadron 4 mg Tablet] 32 mg PO MO@1000 #0 09/20/17 Dextrose [Glutose 40% Gel 15 gm Tube] 15 gm PO PRN PRN tube 09/20/17 Dextrose [Glutose 40% Gel 15 gm Tube] 30 gm PO PRN PRN tube 09/20/17 Glucagon,Human Recombinant [Glucagen Inj 1 mg Vial] 1 mg SUBCUT PRN PRN vial Lenalidomide [Revlimid] 15 mg PO DAILY #0 09/20/17 Metronidazole [Flagyl 500 mg Tablet] 500 mg PO Q8 #30 tablet 09/20/17 History of Present Illness Patient complains of: Abdominal pain, fever and vomiting History of Present Illness: CORONA TORRES is a 77 year old female with history of recurrent multiple myeloma (started on chemotherapy on 09/11/2017), breast cancer (post right lumpectomy, chemoradiation) was admitted with above-mentioned complaints. It was very difficult to get an accurate history from the patient so most of the information was obtained from her at bedside. According to the patient, she started having left-sided abdominal pain 2 days ago. The pain was intermittent and severe. She felt nauseous around 1 AM yesterday and vomited once. The vomitus was of food consistency, nonbloody. She denied any fever or chills or any diarrhea. She has chronic constipation intermittently. She also denied any urinary symptoms. In the ED, her temperature was 101.1, heart rate 122, respiratory rate 20, blood pressure 135/57 with oxygen saturation of 97% on room air. Her WBC was 10.5 and her hemoglobin was 12.2. Lactic acid was 1.4. UA and CXR were both negative. An abdominal CAT scan was done which showed 4.2 cm contained perforated diverticulitis at the sigmoid/descending colon junction with diffuse wall thickening in the region. She received 3.375 mg IV Zosyn 1. Hospital Course Hospital Course: [place] [facility] [place] General surgery was consulted to see patient in consult. She was seen by Dr. Barnett initially. She underwent drain placement by interventional radiology into her left abdomen. She was started on IV antibiotics after blood cultures 2 were obtained. She was made n.p.o. Her leukocytosis resolved over the next 48 hours. Her abdominal pain improved. She was given clear liquid diet which she tolerated. On 09/[address] of the abdomen and pelvis was obtained with oral and IV contrast. Abscess was noted to be resolved. The drain had become slightly dislodged therefore it was discontinued by the interventional radiologist. She was started on regular diet. She tolerated this with no nausea or pain. Today she has a normal white count and no pain. She will be discharged home on 10 more days of oral antibiotics. She will follow-up with general surgery in the next 7 -10 days. She will need colonoscopy in the next 4-6 weeks. Physical Exam Vital Signs: Temp Pulse Resp BP Pulse Ox 98.5 F 81 18 126/45 H 100 09/20/17 12:42 09/20/17 12:42 09/20/17 12:42 09/20/17 12:42 09/20/17 12:42 Intake & Output 09/19/17 09/20/17 09/21/17 06:59 06:59 06:59 Intake Total 700 1095 Output Total 305 500 Balance 395 595 Weight 60.1 kg 61.5 kg General appearance: PRESENT: no acute distress, thin, well-developed, well- nourished Head exam: PRESENT: atraumatic, normocephalic Eye exam: PRESENT: conjunctiva pink, EOMI, PERRLA. ABSENT: scleral icterus Ear exam: PRESENT: normal external ear exam Mouth exam: PRESENT: moist, tongue midline Neck exam: ABSENT: carotid bruit, JVD, lymphadenopathy, thyromegaly Respiratory exam: PRESENT: clear to auscultation abdelrahman. ABSENT: rales, rhonchi, wheezes Cardiovascular exam: PRESENT: RRR. ABSENT: diastolic murmur, rubs, systolic murmur Pulses: PRESENT: normal dorsalis pedis pul Vascular exam: PRESENT: normal capillary refill GI/Abdominal exam: PRESENT: normal bowel sounds, soft, tenderness - mild at puncture site of the left abdomen Rectal exam: PRESENT: deferred Extremities exam: PRESENT: full ROM. ABSENT: calf tenderness, clubbing, pedal edema Musculoskeletal exam: PRESENT: ambulatory, full ROM Neurological exam: PRESENT: alert, awake, oriented to person, oriented to place , oriented to time, oriented to situation, CN II-XII grossly intact. ABSENT: motor sensory deficit Psychiatric exam: PRESENT: appropriate affect, normal mood. ABSENT: homicidal ideation, suicidal ideation Skin exam: PRESENT: dry, intact, warm. ABSENT: cyanosis, rash Results Laboratory Results: 09/20/17 04:34 09/20/17 04:54 09/20/17 09/20/17 04:34 04:54 WBC 5.7 RBC 3.38 L Hgb 9.6 L Hct 28.2 L MCV 84 MCH 28.4 MCHC 33.9 RDW 16.1 H Plt Count 310 Seg Neutrophils % 71.4 Lymphocytes % 11.3 L Monocytes % 14.2 H Eosinophils % 2.1 Basophils % 1.0 Absolute Neutrophils 4.1 Absolute Lymphocytes 0.6 Absolute Monocytes 0.8 Absolute Eosinophils 0.1 Absolute Basophils 0.1 Sodium 139.4 Potassium 3.3 L Chloride 108 H Carbon Dioxide 20 L Anion Gap 11 BUN < 2 L Creatinine 0.49 L Est GFR ( Amer) > 60 Est GFR (Non-Af Amer) > 60 Glucose 90 Calcium 7.8 L 09/16/17 05:15 Abdomen - Abscess Gram Stain - Final 09/16/17 05:15 Abdomen - Abscess Body Fluid Culture - Final Escherichia Coli Klebsiella Pneumoniae Strep Anginosus Group Bacteroides Fragilis Streptococcus Salivarius Peptostreptococcus Species 09/15/17 18:50 Abdomen - Abscess Gram Stain - Final 09/15/17 18:50 Abdomen - Abscess Wound Culture - Final NO AEROBIC OR ANAEROBIC ORGANISMS RECOVERED Impressions: Chest X-Ray 09/14/17 16:19 IMPRESSION: COPD with minimal left basilar atelectasis or scarring. Guidance Needle Placement CT 09/15/17 00:00 IMPRESSION: CT GUIDED DIVERTICULAR ABSCESS DRAINAGE PERFORMED WITHOUT IMMEDIATE COMPLICATION. FINDINGS DISCUSSED WITH DR. BARNETT Percutaneous Drainage 09/15/17 00:00 IMPRESSION: CT GUIDED DIVERTICULAR ABSCESS DRAINAGE PERFORMED WITHOUT IMMEDIATE COMPLICATION. FINDINGS DISCUSSED WITH DR. BARNETT Abdomen/Pelvis CT 09/19/17 08:00 IMPRESSION: Resolved left lower quadrant diverticular abscess. There is mild persistent inflammation along the sigmoid colon in the area of abscess, bowel wall thickening and luminal narrowing is improved compared to CT exam 09/14/2017 Left lower quadrant abscess drainage catheter was removed while the patient was in the CT suite after IV fentanyl for pain control. No immediate complications post catheter removal. Small amount of air bubbles and fluid along the superficial aspect left lower quadrant abdominal wall likely related to flushing of the catheter. Qualifiers - * PATEINT BEING DISCHARGED WITH ANY OF THE FOLLOWING DIAGNOSIS?: No Plan Discharge Plan: Home with family. Declined home health services Time Spent: Less than 30 Minutes
[2017-09-20] MEDS ORDERED: METRONIDAZOLE 500 MG TABLET PO SCH (14:00)
[2017-09-20] MEDS ORDERED: CIPROFLOXACIN HCL 500 MG TABLET PO SCH (22:00)
== END 2017-09-20 13:01 | disposition home or self-care (01) | DRG 872 ==
LOC: ER 15:58 → EH 22:12 → 3S 09-15 01:08
PROVIDERS: ADMIT Internal Medicine Geriatric Medicine; ATTEND Internal Medicine Geriatric Medicine
PROC: 0D9 Gastrointestinal System, Drainage (ICD-10-PCS; principal; 2017-09-15)
DX: A41.9 Sepsis, unspecified organism (principal); C90.00 Multiple myeloma not having achieved remission; K57.32 Diverticulitis of large intestine without perforation or abscess without bleeding; K57.30 Diverticulosis of large intestine without perforation or abscess without bleeding; C50.911 Malignant neoplasm of unspecified site of right female breast; I10 Essential (primary) hypertension; E87.6 Hypokalemia; B96.20 Unspecified Escherichia coli [E. coli] as the cause of diseases classified elsewhere; B96.1 Klebsiella pneumoniae [K. pneumoniae] as the cause of diseases classified elsewhere; B95.5 Unspecified streptococcus as the cause of diseases classified elsewhere; J44.9 Chronic obstructive pulmonary disease, unspecified; D64.9 Anemia, unspecified; E78.00 Pure hypercholesterolemia, unspecified; Z79.82 Long term (current) use of aspirin; Z79.899 Other long term (current) drug therapy; Z90.710 Acquired absence of both cervix and uterus; Z87.891 Personal history of nicotine dependence
CPT/HCPCS: 36415; 51701; 71046; 74176; 74177; 75989; 77012; 80048; 80053; 81001; 82803; 82962; 83605; 83735; 84100; 85025; 85027; 85610; 87040; 87070; 87075; 87077; 87086; 87186; 87205; 89050; 93005; 93010; 94799; 96360; 99285; C1729; C1769; C1894; J1644; J2250; J2543; J3010; J3475; J3480; J3490; J7030; S0164

== ENCOUNTER 2017-10-20 21:24 | Observation (INO) | payer MEDICARE ==
[2017-10-20 22:11] LABS: ABSOLUTE LYMPHOCYTES (AUTO) 0.8 10^3/uL (0.5-4.7); ABSOLUTE MONOCYTES (AUTO) 0.3 10^3/uL (0.1-1.4); ABSOLUTE NEUT (AUTO) 3.4 10^3/uL (1.7-8.2); BASOPHILS % (AUTO) 0.5 % (0-2); EOSINOPHILS % (AUTO) 0.1 % (0-6); HEMOGLOBIN 11.7 g/dL (12.0-15.5); LYMPHOCYTES % (AUTO) 17.1 % (13-45); MEAN CORPUSCULAR HEMOGLOBIN 28.6 pg (27.0-33.4); MEAN CORPUSCULAR HGB CONC 33.4 g/dL (32.0-36.0); MEAN CORPUSCULAR VOLUME 86 fl (80-97); MONOCYTES % (AUTO) 7.6 % (3-13); PLATELET COUNT 289 10^3/uL (150-450); SEGMENTED NEUTROPHILS % (AUTO) 74.7 % (42-78); TOTAL CELLS COUNTED % (AUTO) 100 %; WHITE BLOOD COUNT 4.6 10^3/uL (4.0-10.5)
[2017-10-20 22:34] LABS: ALANINE AMINOTRANSFERASE 22 U/L (9-52); ALKALINE PHOSPHATASE 64 U/L (38-126); ANION GAP 10 (5-19); ASPARTATE AMINO TRANSFERASE 16 U/L (14-36); BILIRUBIN,DIRECT 0.1 mg/dL (0.0-0.4); BILIRUBIN,TOTAL 0.5 mg/dL (0.2-1.3); BLOOD UREA NITROGEN 12 mg/dL (7-20); CALCIUM 9.5 mg/dL (8.4-10.2); CARBON DIOXIDE 31 mmol/L (22-30); CHLORIDE 99 mmol/L (98-107); GLUCOSE 130 mg/dL (75-110); LIPASE 59.9 U/L (23-300); SODIUM 139.8 mmol/L (137-145); TOTAL PROTEIN 7.1 g/dL (6.3-8.2)
[2017-10-20] MEDS ORDERED: LIDOCAINE 2% VISCOUS SOLN 20 ML UDCUP PO ONE (22:35)
[2017-10-20] MEDS ORDERED: MAG HYDROX/AL HYDROX/SIMETH SUSP 30 ML UDCUP PO ONE (22:35)
[2017-10-20] MEDS ORDERED: METOCLOPRAMIDE HCL ORAL SOLN 10 MG/10 ML UDCUP PO ONE (22:35)
--- NOTE | 2017-10-20 22:36 | ER Document Report ---
ED General - General Chief Complaint: Abdominal Pain Stated Complaint: ABDOMINAL PAIN Time Seen by Provider: 10/20/17 22:19 Notes: Patient is a 77-year-old female who presents with complaint of epigastric pain. Started last 24 hours. No fevers. No vomiting. No diarrhea. Normal bowel movement today. No black tarry stools. No bloody stools. She did have a recent history of diverticulitis 2 weeks ago. On Monday her doctor repeat a CT scan which showed that the diverticulitis had cleared. She does have history multiple myeloma was recently started back on her medications. She denies any history of abdominal surgeries. No other complaints at this time. Nothing seems to make the pain worse or better. Is not affected by eating. TRAVEL OUTSIDE OF THE [place] IN LAST 30 DAYS: No - Related Data Allergies/Adverse Reactions: No Known Allergies Allergy (Verified 09/14/17 16:01) Past Medical History - Social History Smoking Status: Never Smoker Frequency of alcohol use: None Drug Abuse: None Family History: Reviewed & Not Pertinent - Past Medical History Cardiac Medical History: Reports: Hx Hypercholesterolemia, Hx Hypertension Renal/ Medical History: Denies: Hx Peritoneal Dialysis Malignancy Medical History: Reports: Hx Breast Cancer - Post right lumpectomy with a chemoradiation. Past Surgical History: Reports: Hx Breast Surgery - R lumpectomy, Hx Hysterectomy, Hx Orthopedic Surgery - pin in L leg, Other - Right lumpectomy. - Immunizations Hx Pneumococcal Vaccination: 04/23/18 Review of Systems - Review of Systems Notes: My Normal Review Basic REVIEW OF SYSTEMS: CONSTITUTIONAL : Denies fever, chills, or sweats. Denies recent illness. EENT: Denies eye, ear, throat, or mouth pain or symptoms. Denies nasal or sinus congestion. CARDIOVASCULAR: Denies chest pain. RESPIRATORY: Denies cough, cold, or chest congestion. Denies shortness of breath, difficulty breathing, or wheezing. GASTROINTESTINAL: Epigastric abdominal pain. Denies nausea, vomiting, or diarrhea. GENITOURINARY: Denies difficulty urinating, painful urination, burning, frequency, or blood in urine. MUSCULOSKELETAL: Denies neck or back pain or joint pain or swelling. SKIN: Denies rash or skin lesions. NEUROLOGICAL: Denies altered mental status or loss of consciousness. Denies headache. Denies weakness or paralysis or loss of use of either side. Denies problems with gait or speech. Denies sensory or motor loss. ALL OTHER SYSTEMS REVIEWED AND NEGATIVE. Physical Exam - Vital signs Vitals: Temp Pulse Resp BP Pulse Ox 98.8 F 115 H 18 169/73 H 100 10/20/17 21:56 10/20/17 21:56 10/20/17 21:56 10/20/17 21:56 10/20/17 21:56 - Notes Notes: General Appearance: Well nourished, alert, cooperative, no acute distress, mild obvious discomfort. Vitals: reviewed, See vital signs table. Head: no swelling or tenderness to the head Eyes: PERRL, EOMI, Conjuctiva clear Mouth: No decreasd moisture Lungs: No wheezing, No rales, No rhonci, No accessory muscle use, good air exchange bilaterally. Heart: Normal rate, Regular rythm, split S2, no rub Abdomen: Normal BS, soft, No rigidity, mild epigastric abdominal tenderness palpation, No guarding, no rebound, Extremities: strength 5/5 in all extremities, good pulses in all extremities, no swelling or tenderness in the extremities, no edema. Skin: warm, dry, appropriate color, no rash Neuro: speech clear, oriented x 3, normal affect, responds appropriately to questions. Course - Re-evaluation Re-evalutation: 10/20/17 23:46 Nurse brought me a rhythm strip were patient had 2 quick brief episodes of could be V. tach. This also could be artifact. I went and asked the patient if she just recently had a symptoms or fellows of her heart was racing her for a lightheaded or chest pain. Patient denies any of those symptoms. 10/20/17 23:53 Patient still was persistently tachycardic as well as some epigastric abdominal pain. Clinically she is not very ill-appearing but she still obviously has some pain is tachycardic and therefore I am concerned. Laboratory evaluation does not show anything of concern. I will obtain CT scan of her chest abdomen pelvis with IV contrast visualize her aorta. She is a little hypertensive. She says that 3 months ago she was taken off all her antihypertensive medications except for lisinopril. She said she used to be on metoprolol but that was 3 months ago. She is on no weight controlling medications at this time. 10/21/17 03:36 Patient's tachycardia did improve some once her pain was gone. Her tachycardia heart rate went down to around 108-110. This is with her completely pain-free and after receiving IV fluids. I did review her previous records and her heart rate is usually in the 80s. My concern is that the patient still persistently tachycardic at rest. I did ambulate her. So she got up and start walking she started having epigastric pain again and her heart rate went into the 120s. Also she had that short stretch of possible V. tach on the monitor. She has not had any further episodes since that rhythm strip to have the two 8-9 beat stretches of wide complex tachycardia which again may be artifact or v-tach. Because is a feel she probably does require telemetry observation. I did call and speak with Dr. Quick who agrees and admit the patient for observation. Dictation of this chart was performed using voice recognition software; therefore, there may be some unintended grammatical errors. - Vital Signs Vital signs: Temp Pulse Resp BP Pulse Ox 98.8 F 115 H 14 150/77 H 98 10/20/17 21:56 10/20/17 21:56 10/21/17 02:01 10/21/17 02:01 10/21/17 02:01 - Laboratory Result Diagrams: 10/20/17 21:53 10/20/17 21:53 Laboratory results interpreted by me: 10/20/17 10/20/17 10/20/17 21:53 21:53 22:00 Hgb 11.7 L Hct 35.0 L RDW 17.0 H Carbon Dioxide 31 H Glucose 130 H Urine Ketones 25 H Urine Urobilinogen 2.0 H - EKG Interpretation by Me Additional EKG results interpreted by me: 10/20/17 22:57 EKG is reviewed and interpreted by me. EKG shows sinus tachycardia with a rate of [address] segment elevation or depression. No ischemic T-wave inversions. FL interval, QRS duration, QTc intervals are within normal range. Old EKG for comparison is from September 14, 2017. Discharge - Discharge Clinical Impression: Tachycardia, Epigastric abdominal pain Condition: Stable Disposition: ADMITTED OBSERVATION Admitting Provider: Hospitalist Unit Admitted: Telemetry Referrals: CADEN LOCO MD [Primary Care Provider] - Follow up as needed
[2017-10-20] MEDS ORDERED: NORMAL SALINE 500 ML IV ONE (22:57)
[2017-10-20 22:59] LABS: APPEARANCE,URINE CLEAR; GLUCOSE, URINE NEGATIVE (NEGATIVE)
[2017-10-20 23:00] LABS: BILIRUBIN,URINE NEGATIVE (NEGATIVE); KETONES,URINE 25 mg/dL (NEGATIVE); LEUKOCYTE ESTERASE,URINE NEGATIVE (NEGATIVE); NITRITE,URINE NEGATIVE (NEGATIVE); PROTEIN,URINE NEGATIVE (NEGATIVE); URINE SPECIFIC GRAVITY 1.019
[2017-10-20 23:01] LABS: COLOR,URINE STRAW
[2017-10-20] MEDS ORDERED: MORPHINE SULFATE 10 MG/ML INJ IV ONE (23:52)
--- NOTE | 2017-10-21 01:27 | RADIOLOGY REPORT (SQ) ---
EXAM DESCRIPTION: CTA CHEST (accession [id number]), CT ABD/PELVIS WITH IV ONLY (accession [id number]) CLINICAL HISTORY: 77 years Female, persistent tachycardia COMPARISON: None. TECHNIQUE: 63 mL Isovue-370 IV contrast. Multiplanar reformat. This exam was performed according to our departmental dose-optimization program, which includes automated exposure control, adjustment of the mA and/or kV according to patient size and/or use of iterative reconstruction technique. FINDINGS: No pulmonary embolus. No right ventricular strain. Mild fibrocystic scar pattern of the right lung apex. Likely benign 3 cm right renal cyst. 2.5 cm umbilical fat only hernia. Mild lumbar dextroconvexity. Extensive colonic diverticulosis and left femoral intramedullary ekta partially imaged. Moderate bone demineralization. Mild lower lumbar spondylosis.Inferior neck, axillae, mediastinum, lungs, airway, heart, liver, gallbladder, pancreas, spleen, adrenals, renal system, gastrointestinal tract, pelvic organs, lymphatics, vasculature, and musculoskeleton appear otherwise unremarkable. IMPRESSION: No acute findings of the chest, abdomen, or pelvis. No pulmonary embolus.
--- NOTE | 2017-10-21 01:27 | RADIOLOGY REPORT (SQ) ---
EXAM DESCRIPTION: CTA CHEST (accession [id number]), CT ABD/PELVIS WITH IV ONLY (accession [id number]) CLINICAL HISTORY: 77 years Female, persistent tachycardia COMPARISON: None. TECHNIQUE: 63 mL Isovue-370 IV contrast. Multiplanar reformat. This exam was performed according to our departmental dose-optimization program, which includes automated exposure control, adjustment of the mA and/or kV according to patient size and/or use of iterative reconstruction technique. FINDINGS: No pulmonary embolus. No right ventricular strain. Mild fibrocystic scar pattern of the right lung apex. Likely benign 3 cm right renal cyst. 2.5 cm umbilical fat only hernia. Mild lumbar dextroconvexity. Extensive colonic diverticulosis and left femoral intramedullary ekta partially imaged. Moderate bone demineralization. Mild lower lumbar spondylosis.Inferior neck, axillae, mediastinum, lungs, airway, heart, liver, gallbladder, pancreas, spleen, adrenals, renal system, gastrointestinal tract, pelvic organs, lymphatics, vasculature, and musculoskeleton appear otherwise unremarkable. IMPRESSION: No acute findings of the chest, abdomen, or pelvis. No pulmonary embolus.
[2017-10-21] MEDS ORDERED: MORPHINE SULFATE 10 MG/ML INJ IV ONE (01:32)
[2017-10-21] MEDS ORDERED: METOPROLOL TARTRATE 25 MG TABLET PO ONE (05:30)
[2017-10-21] MEDS ORDERED: FAMOTIDINE 20 MG TABLET PO ONE (06:00)
--- NOTE | 2017-10-21 07:20 | PDOC H&P ---
History of Present Illness Admission Date/PCP: 10/21/17 04:26 CADEN LOCO MD Patient complains of: Epigastric pain History of Present Illness: CORONA TORRES is a 77 year old female with history of multiple myeloma, severe diverticulosis and recurrent diverticulitis. Patient presents for 8 hours after eating a sandwich resulting in epigastric pain with nausea without fever, vomiting or diarrhea. She characterizes the pain is dull and waxing and waning somewhat improved with food. She denies constipation, previous episode or recent change in medications. In the emergency room she has improvement of pain with a GI cocktail however develops telemetry strips that resemble V. tach 2 patient is however asymptomatic. Patient remains tachycardic in the 105-115 range. Metoprolol was discontinued approximately 3 months ago for an unclear reason. Initial workup including chemistry, CBC, CTA chest and abdomen pelvis are negative. She is referred to the hospitalist for observation. Past Medical History Cardiac Medical History: Reports: Hyperlipidema, Hypertension Malignancy Medical History: Reports: Breast Cancer - Post right lumpectomy with a chemoradiation., Other - Multiple myeloma Hematology: Reports: Anemia Past Surgical History Past Surgical History: Reports: Hysterectomy, Orthopedic Surgery - pin in L leg , Other - Right lumpectomy. Social History Information Source: Patient, [facility] Records Lives with: Spouse/Significant other Smoking Status: Former Smoker Frequency of Alcohol Use: None Hx Recreational Drug Use: No Drugs: None Hx Prescription Drug Abuse: No - Advance Directive Resuscitation Status: Full Code Family History Family History: Hypertension Parental Family History Reviewed: Yes Children Family History Reviewed: Yes Sibling(s) Family History Reviewed.: Yes Medication/Allergy Home Medications: Aspirin [Aspirin EC] 162 mg PO DAILY 09/15/17 Atorvastatin Calcium [Lipitor 10 mg Tablet] 10 mg PO QHS 09/15/17 Lisinopril [Prinivil 10 mg Tablet] 10 mg PO DAILY 09/15/17 Omeprazole 20 mg PO Q6AM 09/15/17 Potassium Chloride [Klor-Con 10 Meq Tablet.sa] 20 meq PO BID 09/15/17 Sennosides/Docusate Sodium [Senna-S Tablet] 1 each PO DAILY 09/15/17 Acetaminophen [Tylenol 325 mg Tablet] 650 mg PO Q4HP PRN tablet 09/20/17 Ciprofloxacin HCl [Cipro 500 mg Tablet] 500 mg PO Q12 #20 tablet 09/20/17 Dexamethasone [Decadron 4 mg Tablet] 32 mg PO MO@1000 #0 09/20/17 Dextrose [Glutose 40% Gel 15 gm Tube] 15 gm PO PRN PRN tube 09/20/17 Dextrose [Glutose 40% Gel 15 gm Tube] 30 gm PO PRN PRN tube 09/20/17 Glucagon,Human Recombinant [Glucagen Inj 1 mg Vial] 1 mg SUBCUT PRN PRN vial Lenalidomide [Revlimid] 15 mg PO DAILY #0 09/20/17 Metronidazole [Flagyl 500 mg Tablet] 500 mg PO Q8 #30 tablet 09/20/17 Allergies/Adverse Reactions: No Known Allergies Allergy (Verified 09/14/17 16:01) Review of Systems Constitutional: ABSENT: chills, fever(s), headache(s), weight gain, weight loss Eyes: ABSENT: visual disturbances Ears: ABSENT: hearing changes Cardiovascular: ABSENT: chest pain, dyspnea on exertion, edema, orthropnea, palpitations Respiratory: ABSENT: cough, hemoptysis Gastrointestinal: ABSENT: abdominal pain, constipation, diarrhea, hematemesis, hematochezia, nausea, vomiting Genitourinary: ABSENT: dysuria, hematuria Musculoskeletal: ABSENT: joint swelling Integumentary: ABSENT: rash, wounds Neurological: ABSENT: abnormal gait, abnormal speech, confusion, dizziness, focal weakness, syncope Psychiatric: ABSENT: anxiety, depression, homidical ideation, suicidal ideation Endocrine: ABSENT: cold intolerance, heat intolerance, polydipsia, polyuria Hematologic/Lymphatic: ABSENT: easy bleeding, easy bruising Physical Exam Vital Signs: Temp Pulse Resp BP Pulse Ox 98.8 F 115 H 15 139/77 H 98 10/20/17 21:56 10/20/17 21:56 10/21/17 06:01 10/21/17 06:01 10/21/17 06:01 General appearance: PRESENT: no acute distress, well-developed, well-nourished Head exam: PRESENT: atraumatic, normocephalic Eye exam: PRESENT: conjunctiva pink, EOMI, PERRLA. ABSENT: scleral icterus Ear exam: PRESENT: normal external ear exam Mouth exam: PRESENT: moist, tongue midline Neck exam: ABSENT: carotid bruit, JVD, lymphadenopathy, thyromegaly Respiratory exam: PRESENT: clear to auscultation abdelrahman. ABSENT: rales, rhonchi, wheezes Cardiovascular exam: PRESENT: RRR. ABSENT: diastolic murmur, rubs, systolic murmur Pulses: PRESENT: normal dorsalis pedis pul Vascular exam: PRESENT: normal capillary refill GI/Abdominal exam: PRESENT: normal bowel sounds, soft. ABSENT: distended, guarding, mass, organolmegaly, rebound, tenderness Rectal exam: PRESENT: deferred Extremities exam: PRESENT: full ROM. ABSENT: calf tenderness, clubbing, pedal edema Neurological exam: PRESENT: alert, awake, oriented to person, oriented to place , oriented to time, oriented to situation, CN II-XII grossly intact. ABSENT: motor sensory deficit Psychiatric exam: PRESENT: appropriate affect, normal mood. ABSENT: homicidal ideation, suicidal ideation Skin exam: PRESENT: dry, intact, warm. ABSENT: cyanosis, rash Results Impressions: Abdomen/Pelvis CT 10/21/17 00:00 IMPRESSION: No acute findings of the chest, abdomen, or pelvis. No pulmonary embolus. Chest/Abdomen CTA 10/21/17 00:00 IMPRESSION: No acute findings of the chest, abdomen, or pelvis. No pulmonary embolus. Assessment & Plan - Diagnosis (1) Epigastric abdominal pain Is this a current diagnosis for this admission?: Yes Plan: Likely gastritis, proton pump inhibitor, trial clear liquids (2) Tachycardia Is this a current diagnosis for this admission?: Yes Plan: Telemetry observation, resume low-dose metoprolol - Time Time Spent: 30 to 50 Minutes
--- NOTE | 2017-10-21 09:25 | PDOC PROGRESS REPORT ---
Subjective Progress Note for:: 10/21/17 Subjective:: The patient is resting in her bed. She states that she is feeling somewhat better since she has come into the hospital. She continues to have some mild epigastric pain and was nauseated earlier this morning but that has since resolved. She denies fever chills overnight. No chest pain. She has been unaware that she has had heart palpitations. She has had no vomiting. She is not having any lower abdominal pain. She has not had a bowel movement this morning. No dysuria, frequency or hematuria. Reason For Visit: EPIGASTRIC PAIN, TACYCARDIA Physical Exam Vital Signs: Temp Pulse Resp BP Pulse Ox 98.8 F 115 H 12 145/75 H 97 10/20/17 21:56 10/20/17 21:56 10/21/17 08:31 10/21/17 08:31 10/21/17 08:31 General appearance: PRESENT: no acute distress, well-developed, well-nourished Head exam: PRESENT: atraumatic, normocephalic Eye exam: PRESENT: conjunctiva pink, EOMI, PERRLA. ABSENT: scleral icterus Ear exam: PRESENT: normal external ear exam Mouth exam: PRESENT: moist, tongue midline Respiratory exam: PRESENT: clear to auscultation abdelrahman. ABSENT: rales, rhonchi, wheezes Cardiovascular exam: PRESENT: RRR. ABSENT: diastolic murmur, rubs, systolic murmur Pulses: PRESENT: normal dorsalis pedis pul GI/Abdominal exam: PRESENT: normal bowel sounds, soft, tenderness - Mild tenderness to palpation in the epigastric area.. ABSENT: distended, guarding, mass, organolmegaly, rebound Rectal exam: PRESENT: deferred Extremities exam: PRESENT: full ROM. ABSENT: calf tenderness, clubbing, pedal edema Musculoskeletal exam: PRESENT: ambulatory Neurological exam: PRESENT: alert, awake, oriented to person, oriented to place , oriented to time, oriented to situation, CN II-XII grossly intact. ABSENT: motor sensory deficit Psychiatric exam: PRESENT: appropriate affect, normal mood. ABSENT: homicidal ideation, suicidal ideation Skin exam: PRESENT: dry, intact, warm. ABSENT: cyanosis, rash Results Impressions: Abdomen/Pelvis CT 10/21/17 00:00 IMPRESSION: No acute findings of the chest, abdomen, or pelvis. No pulmonary embolus. Chest/Abdomen CTA 10/21/17 00:00 IMPRESSION: No acute findings of the chest, abdomen, or pelvis. No pulmonary embolus. Assessment & Plan - Diagnosis (1) Epigastric abdominal pain Is this a current diagnosis for this admission?: Yes Plan: The patient has been on antibiotic therapy. She may have some underlying gastritis. I will place her on twice daily PPI therapy for now. (2) Sinus tachycardia Is this a current diagnosis for this admission?: Yes Plan: There were some episodes that looked as if she might of had brief runs of V. tach. We will keep her on a remote monitor. She has been started on metoprolol tartrate 12.5 mg twice daily. (3) Anemia Is this a current diagnosis for this admission?: Yes Plan: This is an anemia of chronic disease related to her underlying malignancy. Her hemoglobin is stable (4) Elevated TSH Is this a current diagnosis for this admission?: Yes Plan: We will obtain a free T4 level and a repeat TSH in the morning. (5) Multiple myeloma Qualifiers: Multiple myeloma remission status: not in remission Qualified Code(s): C90.00 - Multiple myeloma not having achieved remission Is this a current diagnosis for this admission?: Yes Plan: She follows with Dr. Larisa Raymond in [facility] (6) Essential hypertension Is this a current diagnosis for this admission?: Yes Plan: She has not been on any medications. She has been started on low-dose metoprolol. Continue lisinopril (7) Hyperlipidemia Is this a current diagnosis for this admission?: Yes Plan: Continue statin medication (8) Diverticulitis Is this a current diagnosis for this admission?: Yes Plan: The patient was recently admitted for diverticulitis. We will continue her Cipro and Flagyl to complete a course of treatment. (9) History of breast cancer Is this a current diagnosis for this admission?: Yes Plan: Again she follows with Dr. Larisa Raymond (10) Full code status Is this a current diagnosis for this admission?: Yes - Time Time Spent with patient: 25-34 minutes - Inpatient Certification Medical Necessity: Other - The patient remains in observation status. She has been started on low-dose metoprolol. We will monitor her to make sure she does not have any further episodes of tachycardia. Hopefully she can be discharged in the morning.
[2017-10-21] MEDS ORDERED: LANSOPRAZOLE 30 MG TAB.RAP.DR PO ONE (09:30)
[2017-10-21] MEDS ORDERED: METRONIDAZOLE 500 MG TABLET PO ONE (09:45)
[2017-10-21] MEDS ORDERED: LENALIDOMIDE 15 MG PO SCH (10:00)
[2017-10-21] MEDS ORDERED: ATORVASTATIN CALCIUM 10 MG TABLET PO ONE (10:00)
[2017-10-21] MEDS ORDERED: DOCUSATE SODIUM 100 MG CAPSULE PO SCH (10:00)
[2017-10-21] MEDS ORDERED: FAMOTIDINE 20 MG TABLET PO SCH (10:00)
--- NOTE | 2017-10-21 10:26 | EKG REPORT ---
SEVERITY:- BORDERLINE ECG - SINUS TACHYCARDIA PROBABLE LEFT ATRIAL ABNORMALITY : Confirmed by: Anderson Steinberg MD 21-Oct-2017 10:26:01
[2017-10-21] MEDS: POTASSIUM CHLORIDE 10 MEQ TABLET.SA PO SCH ×2 (10:42→18:43)
[2017-10-21] MEDS: CIPROFLOXACIN HCL 500 MG TABLET PO SCH ×2 (10:43→23:24)
[2017-10-21] MEDS: ASPIRIN 81 MG TABLET, ENT COATED PO SCH (10:44)
[2017-10-21] MEDS: SENNOSIDES/DOCUSATE 8.6-50 MG 1 EACH TABLET PO SCH (10:45)
[2017-10-21] MEDS: METOPROLOL TARTRATE 25 MG TABLET PO SCH (10:46)
[2017-10-21] MEDS: LISINOPRIL 10 MG TABLET PO SCH (10:47)
[2017-10-21] MEDS ORDERED: METRONIDAZOLE 500 MG TABLET PO SCH (14:00)
[2017-10-21] MEDS ORDERED: LIDOCAINE 2% VISCOUS SOLN 20 ML UDCUP PO ONE (15:00)
[2017-10-21] MEDS ORDERED: METOCLOPRAMIDE HCL ORAL SOLN 10 MG/10 ML UDCUP PO ONE (15:00)
[2017-10-21] MEDS ORDERED: MAG HYDROX/AL HYDROX/SIMETH SUSP 30 ML UDCUP PO ONE (15:00)
[2017-10-21] MEDS ORDERED: TRAMADOL HCL 50 MG TABLET PO ONE (15:00)
[2017-10-21] MEDS: LANSOPRAZOLE 30 MG TAB.RAP.DR PO SCH (18:43)
[2017-10-21] MEDS ORDERED: ACETAMINOPHEN 325 MG TABLET PO PRN (23:23)
[2017-10-22] MEDS: METOPROLOL TARTRATE 25 MG TABLET PO SCH ×2 (05:45→09:58)
[2017-10-22] MEDS: LANSOPRAZOLE 30 MG TAB.RAP.DR PO SCH (06:11)
[2017-10-22 06:22] LABS: ABSOLUTE LYMPHOCYTES (AUTO) 0.7 10^3/uL (0.5-4.7); ABSOLUTE MONOCYTES (AUTO) 0.8 10^3/uL (0.1-1.4); ABSOLUTE NEUT (AUTO) 3.2 10^3/uL (1.7-8.2); BASOPHILS % (AUTO) 0.7 % (0-2); EOSINOPHILS % (AUTO) 0.7 % (0-6); HEMATOCRIT 35.5 % (36.0-47.0); HEMOGLOBIN 11.7 g/dL (12.0-15.5); LYMPHOCYTES % (AUTO) 13.8 % (13-45); MEAN CORPUSCULAR HEMOGLOBIN 28.4 pg (27.0-33.4); MEAN CORPUSCULAR VOLUME 86 fl (80-97); PLATELET COUNT 279 10^3/uL (150-450); RED BLOOD COUNT 4.12 10^6/uL (3.72-5.28); RED CELL DISTRIBUTION WIDTH 17.1 % (11.5-14.0); SEGMENTED NEUTROPHILS % (AUTO) 68.8 % (42-78); TOTAL CELLS COUNTED % (AUTO) 100 %; WHITE BLOOD COUNT 4.7 10^3/uL (4.0-10.5)
[2017-10-22 06:54] LABS: ALANINE AMINOTRANSFERASE 22 U/L (9-52); ALBUMIN 3.6 g/dL (3.5-5.0); ALKALINE PHOSPHATASE 54 U/L (38-126); ANION GAP 9 (5-19); ASPARTATE AMINO TRANSFERASE 18 U/L (14-36); BILIRUBIN,DIRECT 0.2 mg/dL (0.0-0.4); BILIRUBIN,TOTAL 0.7 mg/dL (0.2-1.3); BLOOD UREA NITROGEN 8 mg/dL (7-20); CALCIUM 8.8 mg/dL (8.4-10.2); CARBON DIOXIDE 25 mmol/L (22-30); CHLORIDE 103 mmol/L (98-107); GLUCOSE 84 mg/dL (75-110); POTASSIUM 3.8 mmol/L (3.6-5.0); TOTAL PROTEIN 6.7 g/dL (6.3-8.2)
[2017-10-22 07:07] LABS: FREE T3 3.45 pg/mL (2.77-5.27); FREE T4 (FREE THYROXINE) 0.99 ng/dL (0.78-2.19)
[2017-10-22 07:21] LABS: THYROID STIMULATING HORMONE 6.15 uIU/mL (0.47-4.68)
[2017-10-22] MEDS: SENNOSIDES/DOCUSATE 8.6-50 MG 1 EACH TABLET PO SCH (09:57)
[2017-10-22] MEDS: ASPIRIN 81 MG TABLET, ENT COATED PO SCH (09:57)
[2017-10-22] MEDS: LISINOPRIL 10 MG TABLET PO SCH (09:57)
[2017-10-22] MEDS: CIPROFLOXACIN HCL 500 MG TABLET PO SCH (09:58)
[2017-10-22] MEDS: POTASSIUM CHLORIDE 10 MEQ TABLET.SA PO SCH (09:58)
[2017-10-22 12:27] VITALS: BP 114/63
--- NOTE | 2017-10-22 16:58 | PDOC DISCHARGE SUMMARY ---
General - Admit/Disc Date/PCP Admission Date/Primary Care Provider: 10/21/17 04:26 CADEN LOCO MD Oncologist: Dr Larisa Raymond Discharge Date: 10/22/17 - Discharge Diagnosis (1) Epigastric abdominal pain Is this a current diagnosis for this admission?: Yes Summary: Possibly due to recent antibiotics. She may have had some mild gastritis. She responded quite nicely to PPI therapy. She will be discharged on 40 mg of p.o. Protonix. (2) Sinus tachycardia Is this a current diagnosis for this admission?: Yes Summary: The patient was started on low-dose metoprolol with good results. No further episodes. (3) Anemia Is this a current diagnosis for this admission?: Yes Summary: She has a mild normocytic anemia likely related to her underlying malignancy. (4) Elevated TSH Is this a current diagnosis for this admission?: Yes Summary: Free T4 was within normal limits but on the low side. This will need to be followed up as an outpatient with a repeat TSH in a few weeks. (5) Multiple myeloma Is this a current diagnosis for this admission?: Yes Summary: She will keep her regularly scheduled appointment with Dr. Raymond (6) Essential hypertension Is this a current diagnosis for this admission?: Yes Summary: Stable. No issues during this hospitalization (7) Hyperlipidemia Is this a current diagnosis for this admission?: Yes Summary: She will resume her home regimen (8) Diverticulitis Is this a current diagnosis for this admission?: Yes Summary: She was recently treated for diverticulitis. No evidence of recurrence. (9) History of breast cancer Is this a current diagnosis for this admission?: Yes Summary: She follows with Dr. Larisa Raymond as an outpatient. (10) Full code status Is this a current diagnosis for this admission?: Yes - Additional Information Resuscitation Status: Full Code Discharge Diet: Other (Comments) Discharge Activity: Activity As Tolerated, Balance Activity w/Rest, Slowly Increase Activity Prescriptions: Metoprolol Tartrate [Lopressor 25 mg Tablet] 12.5 mg PO Q12 #30 tablet Pantoprazole Sodium [Protonix] 40 mg PO DAILY #30 tablet. Home Medications: Aspirin [Ecotrin 81 mg EC Tablet] 162 mg PO DAILY tabec 10/22/17 Atorvastatin Calcium [Lipitor 10 mg Tablet] 10 mg PO QHS tablet 10/22/17 Dexamethasone [Decadron 4 mg Tablet] 32 mg PO MO@1000 tablet 10/22/17 Lenalidomide [Revlimid] 15 mg PO .DAILY 10/22/17 Lisinopril [Prinivil 10 mg Tablet] 10 mg PO DAILY tablet 10/22/17 Metoprolol Tartrate [Lopressor 25 mg Tablet] 12.5 mg PO Q12 #30 tablet 10/22/17 Pantoprazole Sodium [Protonix] 40 mg PO DAILY #30 tablet. 10/22/17 Potassium Chloride [Klor-Con 10 Meq Tablet.sa] 20 meq PO BID tablet.sa Sennosides/Docusate 8.6-50 mg [Senna Plus Tablet] 1 each PO DAILY tablet History of Present Illness History of Present Illness: CORONA TORRES is a 77 year old female who presented to the emergency room with epigastric abdominal pain. Hospital Course Hospital Course: The patient is a 77-year-old -[place] female with a past medical history significant for multiple myeloma, diverticulosis with recurrent diverticulitis. She presented to the emergency room with epigastric pain and nausea. She did not have any fever vomiting or diarrhea. In the emergency room she had improvement of her pain with a GI cocktail. However on her telemetry strips she developed a sinus tachycardia and had 2 short episodes of what appeared to be ventricular tachycardia. Due to the patient's persistent sinus tachycardia with rates between 105 and 115 she was referred for admission. She was placed in observation in the hospital. The patient previously had been on metoprolol but this was discontinued a few months ago. She was started back on low-dose metoprolol. She had no further episodes of sinus tachycardia and certainly nothing resembling ventricular tachycardia. She was started initially on twice daily PPI therapy. Her epigastric pain totally resolved. On the day of discharge she is resting comfortably in the bed. She has no complaints and desires to go home. I am going to stop her 20 mg of omeprazole that she was taking at home and start her on 40 mg of Protonix daily. She will be started back on low-dose metoprolol as well. We will have her follow-up with her primary care physician next week. She will keep her regularly scheduled appointment with Dr. Larisa Raymond. At this point maximum hospital benefit has been reached. The patient will be discharged home today in stable condition. Physical Exam Vital Signs: Temp Pulse Resp BP Pulse Ox 98.0 F 85 12 166/78 H 98 10/22/17 12:05 10/22/17 12:05 10/22/17 12:05 10/22/17 12:05 10/22/17 12:05 Intake & Output 10/21/17 10/22/17 10/23/17 06:59 06:59 06:59 Intake Total 195 Balance 195 Weight 59.9 kg General appearance: PRESENT: no acute distress, well-developed, well-nourished Head exam: PRESENT: atraumatic, normocephalic Mouth exam: PRESENT: moist, tongue midline Respiratory exam: PRESENT: clear to auscultation abdelrahman. ABSENT: rales, rhonchi, wheezes Cardiovascular exam: PRESENT: RRR. ABSENT: diastolic murmur, rubs, systolic murmur GI/Abdominal exam: PRESENT: normal bowel sounds, soft. ABSENT: distended, guarding, mass, organolmegaly, rebound, tenderness Rectal exam: PRESENT: deferred Extremities exam: PRESENT: full ROM. ABSENT: calf tenderness, clubbing, pedal edema Neurological exam: PRESENT: alert, awake, oriented to person, oriented to place , oriented to time, oriented to situation, CN II-XII grossly intact. ABSENT: motor sensory deficit Psychiatric exam: PRESENT: appropriate affect, normal mood. ABSENT: homicidal ideation, suicidal ideation Skin exam: PRESENT: dry, intact, warm. ABSENT: cyanosis, rash Results Laboratory Results: 10/22/17 05:53 10/22/17 05:53 10/22/17 10/22/17 10/22/17 05:52 05:53 05:53 WBC 4.7 RBC 4.12 Hgb 11.7 L Hct 35.5 L MCV 86 MCH 28.4 MCHC 33.0 RDW 17.1 H Plt Count 279 Seg Neutrophils % 68.8 Lymphocytes % 13.8 Monocytes % 16.0 H Eosinophils % 0.7 Basophils % 0.7 Absolute Neutrophils 3.2 Absolute Lymphocytes 0.7 Absolute Monocytes 0.8 Absolute Eosinophils 0.0 Absolute Basophils 0.0 Sodium 137.0 Potassium 3.8 Chloride 103 Carbon Dioxide 25 Anion Gap 9 BUN 8 Creatinine 0.52 Est GFR ( Amer) > 60 Est GFR (Non-Af Amer) > 60 Glucose 84 Calcium 8.8 Magnesium 2.1 Total Bilirubin 0.7 AST 18 ALT 22 Alkaline Phosphatase 54 Total Protein 6.7 Albumin 3.6 TSH 6.15 H Free T4 0.99 Free T3 pg/mL 3.45 10/21/17 11:19 Troponin I < 0.012 Impressions: Abdomen/Pelvis CT 10/21/17 00:00 IMPRESSION: No acute findings of the chest, abdomen, or pelvis. No pulmonary embolus. Chest/Abdomen CTA 10/21/17 00:00 IMPRESSION: No acute findings of the chest, abdomen, or pelvis. No pulmonary embolus. Qualifiers - * PATEINT BEING DISCHARGED WITH ANY OF THE FOLLOWING DIAGNOSIS?: No Plan Time Spent: Greater than 30 Minutes - Please send a copy of this dictation to Dr. Loco as well as Dr. Larisa Raymond
[2017-10-22] MEDS ORDERED: ATORVASTATIN CALCIUM 10 MG TABLET PO SCH (22:00)
[2017-10-23] MEDS ORDERED: DEXAMETHASONE 4 MG TABLET PO SCH (10:00)
== END 2017-10-22 12:53 | disposition home or self-care (01) ==
LOC: ER 21:24 → EH 10-21 04:26 → 4S 10-21 12:34
PROVIDERS: ADMIT Internal Medicine; ATTEND Internal Medicine
DX: R10.13 Epigastric pain (principal); R00.0 Tachycardia, unspecified; D64.9 Anemia, unspecified; R94.6 Abnormal results of thyroid function studies; C90.00 Multiple myeloma not having achieved remission; K57.93 Diverticulitis of intestine, part unspecified, without perforation or abscess with bleeding; I10 Essential (primary) hypertension; E78.5 Hyperlipidemia, unspecified; Z85.3 Personal history of malignant neoplasm of breast; Z87.891 Personal history of nicotine dependence
CPT/HCPCS: 93005; 96376; 99285; 96361; 96374; 36415 ×3; 84439; 83690; 83735; 84443 ×2; 85025 ×2; 80053 ×2; 81001; 84484 ×2; 84481; 71275; 74177; 93010; G0378 ×2; A9270 ×18; J3490 ×4; J2270 ×2; J7040

== ENCOUNTER → 2018-05-04 | Outpatient (CLI) | payer MEDICARE ==
--- NOTE | 2018-05-04 15:46 | RADIOLOGY REPORT (SQ) ---
EXAM DESCRIPTION: BONE SURVEY COMPLETE COMPLETED DATE/TIME: 05/04/2018 3:30 pm REASON FOR STUDY: MULTIPLE MYELOMA C90.00 MULTIPLE MYELOMA NOT HAVING ACHIEVED REMISSION COMPARISON: CT chest abdomen pelvis 10/21/2017 Two-view chest 09/14/2017 TECHNIQUE: Images of the axial and proximal appendicular skeleton are obtained, along with lateral s kull and frontal chest films. LIMITATIONS: None. FINDINGS: AP CHEST: Lytic lesions are seen throughout the proximal right humerus in the field of vie w and along the right mid and distal clavicle. Ribs are intact. Lungs clear, cardiac silhouette siz e cecilio unremarkable. LATERAL SKULL: Tiny less than 5 mm lytic lesions in the calvarium AP BOTH HUMERI: Diffuse involvement right humerus with bubbly lytic lesions from myeloma. Left mid 3 rd humerus 2 cm lytic lesion with multiple other smaller subcentimeter lesions from myeloma TWO-VIEW LUMBAR SPINE: No worrisome bone lesions. TWO-VIEW THORACIC SPINE: No worrisome bone lesions. TWO VIEW CERVICAL SPINE: Bony sclerosis at C5 and C6 without overall vertebral body compression. My eloma involvement may be present AP PELVIS: No worrisome bone lesions. AP BOTH FEMURS: Multiple small lytic right humeral diaphysis subcentimeter lesions from myeloma. JOSE MANUEL F left femur with old healed pathologic fracture mid 3rd diaphysis OTHER: No other significant finding. IMPRESSION: Lytic lesions in the bilateral humeri, calvarium, bilateral femurs. Question myeloma in volvement at the C5 and C6 vertebral bodies TECHNICAL DOCUMENTATION: JOB ID: [id number] [employer]- All Rights Reserved Reading location - IP/workstation name: [email or web address]
== END ==
LOC: RAD 14:42
PROVIDERS: ATTEND Student in an Organized Health Care Education/Training Program
DX: C90.00 Multiple myeloma not having achieved remission (principal)
CPT/HCPCS: 77075